=== PATIENT | male | born 1950 | race Caucasian/White ===

== ENCOUNTER → 2018-01-24 | Outpatient (CLI) | payer MEDICARE, OTHER ==
--- NOTE | 2018-01-24 20:54 | ECHOF ---
Referral Reason:R60.0 localized edema MEASUREMENTS -------- HEIGHT: 193.0 cm WEIGHT: 133.4 kg BP: 124/80 IVSd: 1.4 cm (0.6 - 1.1) LVIDd: 4.1 cm (3.9 - 5.3) LVPWd: 1.3 cm (0.6 - 1.1) IVSs: 1.7 cm LVIDs: 2.9 cm LVPWs: 2.2 cm LA Diam: 2.9 cm (2.7 - 3.8) RVIDd: 3.3 cm (< 3.3) LAESV Index (A-L): 13.88 ml/m Ao Diam: 4.1 cm (2.0 - 3.7) AV Cusp: 2.6 cm (1.5 - 2.6) EPSS: 0.2 cm MV E Stan: 0.60 m/s MV DecT: 203 ms MV A Stan: 0.65 m/s MV E/A Ratio: 0.93 AV maxP.65 mmHg AV meanP.73 mmHg RAP: 5.00 mmHg RVSP: 28.48 mmHg MV EF SLOPE: 84.63 mm/s (70 - 150) MV EXCURSION: 19.52 mm (> 18.000) FINDINGS -------- Sinus rhythm. This was a technically adequate study. The left ventricular size is normal. There is moderate concentric left ventricular hypertrophy. O verall left ventricular systolic function is normal with, an EF between 60 - 65 %. The right ventricle is mildly enlarged. Normal LA size by volume 22+/-6 ml/m2. The right atrium is normal in size. There is mild aortic valve sclerosis. Trace to mild aortic regurgitation. Peak/mean gradient acro ss the Aortic Valve is 14.65mmHg / 6.73mmHg. Mild mitral annular calcification present. No regurgitation noted There is no pulmonic regurgitation present. The aortic root is dilated measuring 4.1cm. Normal inferior vena cava with normal inspiratory collapse consistent with estimated right atrial pre ssure of 5 mmHg. There is no pericardial effusion. CONCLUSIONS -------- 1. Sinus rhythm. 2. This was a technically adequate study. 3. The left ventricular size is normal. 4. There is moderate concentric left ventricular hypertrophy. 5. Overall left ventricular systolic function is normal with, an EF between 60 - 65 %. 6. The right ventricle is mildly enlarged. 7. Normal LA size by volume 22+/-6 ml/m2. 8. The right atrium is normal in size. 9. There is mild aortic valve sclerosis. 10. Trace to mild aortic regurgitation. 11. Peak/mean gradient across the Aortic Valve is 14.65mmHg / 6.73mmHg. 12. Mild mitral annular calcification present. 13. No regurgitation noted 14. There is no pulmonic regurgitation present. 15. The aortic root is dilated measuring 4.1cm. 16. Normal inferior vena cava with normal inspiratory collapse consistent with estimated right atrial pressure of 5 mmHg. 17. There is no pericardial effusion. DRY ROASTER: Perry Eli RDCS
== END | disposition home or self-care (01) ==
LOC: RADECHMAIN 15:35
PROVIDERS: ATTEND Family Medicine
DX: I08.0 Rheumatic disorders of both mitral and aortic valves (principal); R60.0 Localized edema
CPT/HCPCS: 93306

== ENCOUNTER 2018-12-15 23:39 | Inpatient (IN) | payer MEDICARE ==
--- NOTE | 2018-12-16 00:09 | ED ---
Chest Pain HPI - General Chief Complaint: Chest Pain Stated Complaint: Chest pain, REZA Time Seen by Provider: 12/15/18 23:53 Source: patient Mode of arrival: EMS Limitations: no limitations - History of Present Illness Initial Comments: This patient is a 68-year-old man who presents to be evaluated for pain to the epigastric area that comes when he takes a deep breath. The patient states that this been going on for 1 week now. He states that when he is not taking of breath there is no pain. He describes it as an aching pain. Patient denies any associated symptoms though he states he has had a cough that is been going on for some time now. No fever or chills. No palpitations, lightheadedness, syncope, nausea or vomiting. MD Complaint: chest pain Onset/Timin -: week(s) Onset: during rest Pain Location: epigastric Pain Radiation: none Severity scale (1-10): 4 Quality: aching Consistency: intermittent Improves With: nothing Worsens With: inspiration Other Symptoms: cough Treatments Prior to Arrival: none - Related Data Home Medications Medication Instructions Recorded Confirmed Aspirin 325 mg PO DAILY 02/26/15 12/15/18 Divalproex [Depakote] 500 mg PO TID 02/26/15 12/15/18 FLUoxetine HCL [Fluoxetine HCl] 20 mg PO QAM 02/26/15 12/15/18 Finasteride 5 mg PO QAM 02/26/15 12/15/18 Tamsulosin HCl 0.4 mg PO QAM 02/26/15 12/15/18 Furosemide [Lasix] 20 mg PO 12/15/18 Allergies Allergy/AdvReac Type Severity Reaction Status Date / Time Penicillins Allergy Rash/Hives Verified 02/26/15 15:50 Review of Systems ROS Statement: Those systems with pertinent positive or pertinent negative responses have been documented in the HPI. ROS Other: All systems not noted in ROS Statement are negative. Constitutional: Denies: fever, chills Respiratory: Reports: cough. Denies: dyspnea, wheezes, hemoptysis Cardiovascular: Reports: as per HPI, chest pain, orthopnea, edema (Patient states that he has had edema for one year greater in the right leg than the left.). Denies: palpitations, dyspnea on exertion, syncope Gastrointestinal: Denies: abdominal pain, nausea, vomiting Genitourinary: Denies: dysuria, hematuria Musculoskeletal: Denies: back pain Skin: Denies: rash Neurological: Denies: headache, weakness, numbness EKG Findings - EKG Results: EKG: interpreted by JOANN PIERCE, sinus rhythm (Rate 81 bpm), normal axis, normal QRS, normal ST/T - IA, Pacemaker, Normal: Normal tracing: normal tracing Past Medical History Past Medical History: No Reported History History of Any Multi-Drug Resistant Organisms: None Reported Past Surgical History: Orthopedic Surgery Past Psychological History: Bipolar Smoking Status: Current every day smoker Past Alcohol Use History: Occasional Past Drug Use History: None Reported General Exam Limitations: no limitations General appearance: alert, in no apparent distress Head exam: Present: atraumatic, normocephalic Eye exam: Present: normal appearance. Absent: scleral icterus, conjunctival injection ENT exam: Present: normal oropharynx Respiratory exam: Present: rales (Bilateral lower lung lerma). Absent: respiratory distress, wheezes, rhonchi, stridor, chest wall tenderness, accessory muscle use, decreased breath sounds, prolonged expiratory Cardiovascular Exam: Present: regular rate, normal rhythm, normal heart sounds. Absent: systolic murmur, diastolic murmur, rubs, gallop GI/Abdominal exam: Present: soft. Absent: distended, tenderness, guarding, rebound, rigid, mass Extremities exam: Present: normal inspection, normal capillary refill, pedal edema (There is edema to the bilateral lower legs right greater than left. There are chronic venous stasis changes.). Absent: tenderness, calf tenderness Back exam: Present: normal inspection. Absent: CVA tenderness (R), CVA tenderness (L) Neurological exam: Present: alert Skin exam: Present: warm, dry, intact, normal color. Absent: rash Course Vital Signs 12/15/18 12/16/18 23:43 00:10 Temperature 98.6 F Pulse Rate 82 Respiratory 24 22 Rate Blood Pressure 123/77 O2 Sat by Pulse 95 Oximetry Disposition Clinical Impression: CHF exacerbation Disposition: ADMITTED IP TO THIS HOSP Condition: Fair Referrals: Russell Brock DO [Primary Care Provider] - 1-2 days
[2018-12-16 00:27] LABS: Anisocytosis Slight; Basophils % (A) 0 %; Eosinophils # (A) 0.4 k/uL (0-0.7); Eosinophils % (A) 4 %; HCT 38.4 % (39.0-53.0); HGB 13.2 gm/dL (13.0-17.5); Lymphocytes # (A) 1.6 k/uL (1.0-4.8); Lymphocytes % (A) 16 %; MCHC 34.3 g/dL (31.0-37.0); MCV 81.5 fL (80.0-100.0); Mean Platelet Volume 9.9; Monocytes # (A) 0.9 k/uL (0-1.0); Monocytes % (A) 9 %; Neutrophils # (A) 7.4 k/uL (1.3-7.7); Neutrophils % (A) 71 %; Platelet Count 233 k/uL (150-450); RBC 4.71 m/uL (4.30-5.90); WBC 10.4 k/uL (3.8-10.6)
[2018-12-16 00:46] LABS: Albumin 3.2 g/dL (3.5-5.0); Calcium 8.3 mg/dL (8.4-10.2); Total Bilirubin 0.3 mg/dL (0.2-1.3); Total Protein 5.6 g/dL (6.3-8.2)
[2018-12-16 01:02] LABS: D-Dimer 0.29 mg/L FEU (<0.60); INR 0.9 (<1.2); Partial Thromboplastin Time 24.6 sec (22.0-30.0); Prothrombin Time 9.5 sec (9.0-12.0)
--- NOTE | 2018-12-16 01:11 | XR ---
EXAM: XR Chest, 2 Views CLINICAL HISTORY: Chest Pain TECHNIQUE: Frontal and lateral views of the chest. COMPARISON: No relevant prior studies available. FINDINGS: Lungs: Bibasilar subsegmental changes. Slightly diminished lung volumes. Pleural space: No large pleural effusion. No pneumothorax. Heart: Unremarkable. No cardiomegaly. Mediastinum: The trachea is midline. The mediastinal contours demonstrate no significant abnormality. Bones/joints: Unremarkable. IMPRESSION: Bibasilar subsegmental changes. Primary consideration is subsegmental atelectasis given slightly diminished lung volumes. Infection at the lung bases is difficult to entirely exclude. Please correlate clinically.
[2018-12-16] MEDS ORDERED: HYDROcodone/APAP 5-325MG 1 EACH TAB PO STA (01:16)
[2018-12-16] MEDS: FUROSEMIDE 10 MG/ML 4 ML VIAL IV SCH ×2 (02:53→14:29)
[2018-12-16 03:51] VITALS: BMI 35.7
[2018-12-16] MEDS: NITROGLYCERIN OINT 1 INCH/GM PACKET TOPICAL SCH ×4 (08:31→20:54)
[2018-12-16] MEDS: HEPARIN SODIUM,PORCINE 5,000 UNIT/ML 1 ML VIAL SQ SCH ×2 (08:31→20:53)
[2018-12-16] MEDS ORDERED: ACETAMINOPHEN TAB 325 MG TAB PO PRN (13:30)
[2018-12-16] MEDS: DIVALPROEX 500 MG TABLET.DR PO SCH ×3 (14:29→20:53)
[2018-12-16] MEDS: buPROPion SR 150 MG TABLET.ER PO SCH ×2 (14:29→21:43)
[2018-12-16] MEDS: TAMSULOSIN 0.4 MG CAP.ER.24H PO SCH (14:34)
[2018-12-16] MEDS: FENOFIBRATE 160 MG TAB PO SCH (14:34)
[2018-12-16] MEDS: traZODone HCL 100 MG TAB PO SCH (20:53)
[2018-12-16] MEDS ORDERED: ALPRAZolam 0.25 MG TAB PO PRN (21:44)
[2018-12-16] MEDS ORDERED: MAGNESIUM HYDROXIDE 2,400 MG/10 ML CUP PO PRN (21:44)
[2018-12-16] MEDS ORDERED: NALOXONE 0.4 MG/ML 1 ML VIAL IV PRN (21:44)
[2018-12-16] MEDS ORDERED: CALCIUM CARBONATE 500 MG CHEWABLE PO PRN (21:44)
[2018-12-16] MEDS ORDERED: MELATONIN 3 MG TABLET PO PRN (21:44)
[2018-12-16] MEDS ORDERED: ONDANSETRON 4 MG/2 ML VIAL IVP PRN (21:44)
[2018-12-16] MEDS ORDERED: LACTULOSE 20 GM/30 ML CUP PO PRN (21:44)
[2018-12-16] MEDS ORDERED: LEVOFLOXACIN 750MG-D5W PMX 750 MG in DEXTROSE/WATER 1 150ML.BAG IVPB SCH (21:45)
[2018-12-16] MEDS: IPRATROPIUM-ALBUTEROL 3 ML NEB INHALATION SCH (21:51)
[2018-12-16] MEDS: BUDESONIDE 1 MG/2 ML NEBU INHALATION SCH (21:51)
[2018-12-16] MEDS: AZITHROMYCIN 500 MG TAB PO SCH (21:52)
[2018-12-16] MEDS: NAPROXEN 250 MG TAB PO SCH (21:52)
[2018-12-16] MEDS: ENOXAPARIN 40 MG/0.4 ML SYRINGE SQ SCH (21:53)
[2018-12-16] MEDS: FAMOTIDINE 20 MG TAB PO SCH (21:54)
[2018-12-16] MEDS: NICOTINE 21MG/24HR PATCH TRANSDERM SCH (21:54)
[2018-12-16] MEDS: methylPREDNISolone SOD SUCCI 40 MG/ML 1 ML VIAL IV SCH (21:55)
--- NOTE | 2018-12-16 23:31 | HP ---
HISTORY AND PHYSICAL DATE OF ADMISSION: December 16, 2018. DATE OF SERVICE: December 16, 2018. PRESENTING COMPLAINT: Short of breath. HISTORY OF PRESENTING COMPLAINT: This 68 -year-old patient of Dr. Brock who presents 1 week of increasing short of breath slight, cough. No sputum production. No obvious fever or chills. Appetite is just okay. Has been more and more short of breath and has shallow breathing, is getting pleuritic chest pain with deep breaths, feeling tired, run down. Patient is a long-standing smoker. The patient in the ER was put on IV Lasix. The patient is long- standing smoker. REVIEW OF SYSTEMS: CONSTITUTIONAL: Tired. HEENT None. RESPIRATORY as above. Wheezing, cough. CARDIOVASCULAR: None. GENITOURINARY: None. MUSCULOSKELETAL none. DERMATOLOGICAL, HEMATOLOGIC, LYMPHATICS: None. PSYCHIATRY: Bipolar disorder, controlled. NEUROLOGICAL: Numbness and tingling in hands and feet. PAST MEDICAL HISTORY: Bipolar disorder. PAST SURGICAL HISTORY: Right femur repair. SOCIAL HISTORY: Smokes about a pack a day for 50 years. Used to drink heavy in the past, now down to about 2 beers a week. Lives with a roommate. FAMILY HISTORY: Reviewed. Noncontributory to presentation. HOME MEDICATIONS: 1. Desyrel 100 mg q.h.s. 2. Wellbutrin XL 150 mg b.i.d. 3. Flomax 0.4 mg p.o. daily. 4. [place]-3 1000 mg p.o. daily. 5. Motrin 800 mg q.6 p.r.n. 6. Fenofibrate 160 mg p.o. daily. 7. Depakote 500 mg p.o. t.i.d. 8. Tylenol 650 mg q.4 p.r.n. ALLERGIES: PENICILLIN. PHYSICAL EXAMINATION: VITAL SIGNS: On exam: Vital signs on presentation: Temperature 98.6, pulse 72, respiration 20, blood pressure 123/77, pulse ox 95% on 2 L. GENERAL APPEARANCE: Well built, BMI 35.8. Lying in bed, tired-appearing, short of breath. EYES: Pupils equal, conjunctivae normal. HEENT: External appearance of nose and ears normal. Oral cavity normal. NECK: JVD not raised. Mass not palpable. RESPIRATORY: Effort increased. LUNGS: Diminished breath sounds, prolonged expiration and wheezing. CARDIOVASCULAR: 1st and 2nd sounds normal. No edema. ABDOMEN: Soft, nontender. Liver and spleen not palpable. LYMPHATICS: No lymph nodes palpable in the neck or axilla. PSYCHIATRY: Alert and oriented x3. Mood and affect normal. NEUROLOGICAL: Pupils equal. Cranial nerves grossly intact. Power and sensation grossly intact. INVESTIGATIONS: White count 10.1, hemoglobin 13.2, potassium 4.0. BUN and creatinine is normal. Troponin x3 negative. Amylase and lipase is normal. EKG tracing personally reviewed by me shows normal sinus rhythm. Chest x-ray film personally reviewed by me shows some infiltrate at the bases. ASSESSMENT: 1. Acute bilateral pneumonia could be bacterial. Gram-negative organism though cannot rule out a viral type of pneumonitis. 2. Acute chronic obstructive pulmonary disease exacerbation in a current smoker. 3. Chronic nicotine dependence patient is a cigarette smoker. PLAN: Patient will be started on IV ceftriaxone, Zithromax. Also put the patient on nebulized bronchodilators, IV steroids and inhaled steroids. Lovenox for DVT prophylaxis and given a nicotine patch. We will stop the patient's IV Lasix as not behaving like CHF. Will send off a proBNP and also send off a procalcitonin level. Care was discussed with the patient. Questions were answered. Depending on the clinical course, will take it further from there. Copy to Dr. Brock. MMODL / IJN: [id number] /
[2018-12-17] MEDS: IPRATROPIUM-ALBUTEROL 3 ML NEB INHALATION SCH ×6 (00:07→20:16)
[2018-12-17] MEDS: methylPREDNISolone SOD SUCCI 40 MG/ML 1 ML VIAL IV SCH ×3 (01:48→17:29)
[2018-12-17 07:32] LABS: Basophils % (A) 0 %; Eosinophils # (A) 0.1 k/uL (0-0.7); Eosinophils % (A) 1 %; HCT 44.7 % (39.0-53.0); HGB 14.8 gm/dL (13.0-17.5); Lymphocytes # (A) 0.8 k/uL (1.0-4.8); Lymphocytes % (A) 9 %; MCH 27.9 pg (25.0-35.0); MCV 84.4 fL (80.0-100.0); Monocytes # (A) 0.2 k/uL (0-1.0); Monocytes % (A) 2 %; Neutrophils % (A) 88 %; Platelet Count 222 k/uL (150-450); RDW 13.5 % (11.5-15.5); WBC 9.2 k/uL (3.8-10.6)
[2018-12-17 07:42] LABS: Calcium 9.1 mg/dL (8.4-10.2); Potassium 4.6 mmol/L (3.5-5.1)
[2018-12-17] MEDS: BUDESONIDE 1 MG/2 ML NEBU INHALATION SCH ×2 (09:05→20:16)
[2018-12-17] MEDS: FAMOTIDINE 20 MG TAB PO SCH ×2 (09:08→20:53)
[2018-12-17] MEDS: NAPROXEN 250 MG TAB PO SCH ×3 (09:08→20:53)
[2018-12-17] MEDS: DIVALPROEX 500 MG TABLET.DR PO SCH ×3 (09:08→20:54)
[2018-12-17] MEDS: buPROPion SR 150 MG TABLET.ER PO SCH ×2 (09:08→20:54)
[2018-12-17] MEDS: TAMSULOSIN 0.4 MG CAP.ER.24H PO SCH (09:09)
[2018-12-17] MEDS: NICOTINE 21MG/24HR PATCH TRANSDERM SCH (09:09)
[2018-12-17] MEDS: FENOFIBRATE 160 MG TAB PO SCH (09:09)
[2018-12-17] MEDS: NITROGLYCERIN OINT 1 INCH/GM PACKET TOPICAL SCH ×4 (09:10→20:53)
[2018-12-17] MEDS: ENOXAPARIN 40 MG/0.4 ML SYRINGE SQ SCH (20:53)
[2018-12-17] MEDS: traZODone HCL 100 MG TAB PO SCH (20:54)
[2018-12-17] MEDS: AZITHROMYCIN 500 MG TAB PO SCH (20:54)
[2018-12-17] MEDS ORDERED: LEVOFLOXACIN 750 MG TAB PO SCH (21:00)
[2018-12-17] MEDS ORDERED: RX INFO: IV CONTRAST WAS GIVEN 1 EACH MISC MISCELLANE PRN (23:14)
[2018-12-18] MEDS: IPRATROPIUM-ALBUTEROL 3 ML NEB INHALATION SCH ×4 (00:02→12:12)
[2018-12-18] MEDS: methylPREDNISolone SOD SUCCI 40 MG/ML 1 ML VIAL IV SCH ×2 (00:21→09:06)
--- NOTE | 2018-12-18 05:05 | PN ---
PROGRESS NOTE DATE OF SERVICE: 12/17/2018 PRESENTING COMPLAINT: Short of breath. INTERVAL HISTORY: This patient admitted with COPD exacerbation, pneumonia. Feels better today. Less cough, less short of breath. Did walk to the bathroom. Oral intake is a bit better. Breathing is a bit better. REVIEW OF SYSTEMS: Done for constitutional, cardiovascular, GI, pulmonary; relevants findings as above. CURRENT MEDICATIONS: Current medications are reviewed that include bronchodilators, IV Solu-Medrol, Zithromax, Levaquin. PHYSICAL EXAMINATION: On examination, temperature 97.7, pulse 93, respirations 20 blood pressure 135/69, pulse ox 93% on room air. GENERAL APPEARANCE: Sitting up, awake. EYES: Pupils equal. Conjunctivae normal. NECK: JVD not raised. Mass not palpable. RESPIRATORY: Effort increased. LUNGS: Decreased breath sounds, decreased wheezing. CARDIOVASCULAR: First and second sounds normal. Minimal edema. ABDOMEN: Soft, nontender. Liver and spleen not palpable. PSYCHIATRY: Alert and oriented x3. Mood and affect normal. INVESTIGATIONS: White count 9.2. Potassium 4.6. Procalcitonin 0.09. ProBNP 135. ASSESSMENT: 1. Acute bilateral pneumonia, could be viral or bacterial with clinical improvement. 2. Acute chronic obstructive pulmonary disease exacerbation in a current smoker. 3. Chronic nicotine dependence. Patient is a cigarette smoker. PLAN: The patient is overall doing better. Given some nonspecific findings on this chest x- ray, we will do a CT scan in the morning of the chest. Otherwise, I am hoping patient can be discharged tomorrow. MMODL / IJN: [id number] /
[2018-12-18 07:19] LABS: Calcium 9.3 mg/dL (8.4-10.2); Potassium 4.6 mmol/L (3.5-5.1)
--- NOTE | 2018-12-18 08:30 | CT ---
EXAMINATION TYPE: CT chest w con DATE OF EXAM: 12/18/2018 COMPARISON: Chest x-ray from 2 days ago. HISTORY: Abn CXR CT DLP: 696.9 mGycm. Automated Exposure Control for Dose Reduction was Utilized. TECHNIQUE: CT scan of the thorax is performed following with IV Contrast, patient injected with 100 mL of Isovue 300. FINDINGS: LUNGS: There is elevated left hemidiaphragm with lateral left basilar linear scarring and/or atelecta sis. No suspicious focal consolidation or groundglass opacity. No concerning parenchymal nodule or ma ss. No pleural effusion or pneumothorax is noted. Tracheobronchial tree is patent MEDIASTINUM: There are no greater than 1 cm hilar or mediastinal lymph nodes. No cardiomegaly or pe ricardial effusion is seen. Enlarged main pulmonary artery measures 3.2 cm diameter on axial image 27 . OTHER: Small degree of bilateral subareolar flame-shaped gynecomastia noted. IMPRESSION: Interval improvement in bibasilar atelectasis and/or infiltrate, minimal residual left ba silar linear scarring and/or atelectasis. No suspicious focal infiltrate remains present.
[2018-12-18] MEDS: FENOFIBRATE 160 MG TAB PO SCH (09:06)
[2018-12-18] MEDS: TAMSULOSIN 0.4 MG CAP.ER.24H PO SCH (09:06)
[2018-12-18] MEDS: FAMOTIDINE 20 MG TAB PO SCH (09:06)
[2018-12-18] MEDS: buPROPion SR 150 MG TABLET.ER PO SCH (09:06)
[2018-12-18] MEDS: DIVALPROEX 500 MG TABLET.DR PO SCH ×2 (09:06→15:29)
[2018-12-18] MEDS: NAPROXEN 250 MG TAB PO SCH (09:06)
[2018-12-18] MEDS: NICOTINE 21MG/24HR PATCH TRANSDERM SCH (09:06)
[2018-12-18] MEDS: NITROGLYCERIN OINT 1 INCH/GM PACKET TOPICAL SCH ×2 (09:07→11:53)
[2018-12-18] MEDS: BUDESONIDE 1 MG/2 ML NEBU INHALATION SCH (09:16)
[2018-12-18 10:17] VITALS: RESP 20
[2018-12-18 11:58] VITALS: BP 132/61; TEMP 97.6
[2018-12-18 12:24] VITALS: PULSE 80
[2018-12-18] MEDS: AZITHROMYCIN 500 MG TAB PO SCH (15:32)
--- NOTE | 2018-12-19 08:28 | DS ---
DISCHARGE SUMMARY DATE OF ADMISSION: 12/16/2018 DATE OF DISCHARGE: 12/18/2018 FINAL DIAGNOSES: 1. Acute bilateral pneumonia, could be viral, bacterial, less likely. 2. Acute chronic obstructive pulmonary disease exacerbation in a current smoker. 3. Chronic nicotine dependence, patient is a cigarette smoker. HOSPITAL COURSE: This patient presented with pneumonia and COPD exacerbation, is smoker. Responded well to antibiotic, steroids, inhaled bronchodilators. Doing much better at the time of discharge. CT scan of the chest was unremarkable. ON EXAMINATION: LUNGS: Improved air entry. CARDIOVASCULAR: First and second sounds normal. Pulse ox 93% on room air. INVESTIGATIONS: Potassium 4.6. The patient is advised against smoking. DISCHARGE MEDICATIONS: 1. Depakote 500 mg p.o. t.i.d. 2. Flomax 0.4 mg p.o. daily. 3. Tricor 160 mg p.o. daily. 4. Motrin 200 to 800 mg q.6 p.r.n. 5. [place]-3, 1000 mg p.o. daily. 6. Wellbutrin SR 150 mg b.i.d. 7. Desyrel 100 mg p.o. q.h.s. 8. Ventolin HFA 1 to 2 puffs q.6 p.r.n. 9. Zithromax 500 mg q.24 for 3 tablets. 10.Atrovent HFA 2 puffs q.i.d. 11.Nicotine patch 21. 12.Prednisone taper. Follow up with Dr. Brock on 12/27/2018. MMODL / IJN: [id number] /
== END 2018-12-18 15:50 | disposition home health service (06) | DRG 194 ==
LOC: EC 23:39 → 3SCARD 12-16 02:12 → OBSVTOIN 12-17 10:45
PROVIDERS: ADMIT Hospitalist; ATTEND Hospitalist
DX: J12.9 Viral pneumonia, unspecified (principal); J44.0 Chronic obstructive pulmonary disease with (acute) lower respiratory infection; J44.1 Chronic obstructive pulmonary disease with (acute) exacerbation; J15.9 Unspecified bacterial pneumonia; F31.9 Bipolar disorder, unspecified; F17.210 Nicotine dependence, cigarettes, uncomplicated; Z71.6 Tobacco abuse counseling; Z79.82 Long term (current) use of aspirin; Z79.899 Other long term (current) drug therapy; Z88.0 Allergy status to penicillin
CPT/HCPCS: 36415; 71046; 71260; 80048; 80053; 82150; 83690; 83735; 83880; 84145; 84484; 85025; 85379; 85610; 85730; 93005; 94640; 96374; 99285

== ENCOUNTER 2019-02-22 09:27 | Emergency (ER) | payer MEDICARE ==
[2019-02-22 09:35] VITALS: BP 154/89; PULSE 87; RESP 18; TEMP 99
--- NOTE | 2019-02-22 09:49 | ED ---
General Adult HPI - General Source: patient, RN notes reviewed Mode of arrival: ambulatory Limitations: no limitations <Kalia Phelan - Last Filed: 02/22/19 10:26> <Daniel Torrez - Last Filed: 02/22/19 10:39> - General Chief complaint: Recheck/Abnormal Lab/Rx Stated complaint: Not able to sleep/legs swelling Time Seen by Provider: 02/22/19 09:36 - History of Present Illness Initial comments: This is a 68-year-old male presents emergency Department with complaints of right leg swelling, not able to sleep. Patient states she's had sleeping issues for years. Patient states he only slept a few hours on-and-off last night. He is on trazodone 150 mg currently states that he finally fell asleep after an hour states that he has to get up shortly after because he has BPH. Patient states that he cannot tolerate not sleeping. He has an appointment on Sunday with his PCP. Patient has not tried taking any other medications including Benadryl or melatonin. Patient states in the past he was on Seroquel. Patient denies chest pain, shortness breath, headache, dizziness, fever, chills, nausea vomiting diarrhea constipation. Patient complains of right leg swelling which has been ongoing for months he does admit that he had a prior injury to his right leg years ago when she had a fracture of his femur. Patient denies any numbness or paresthesias at this time. Patient states his leg just feels tight denies any difficulty ambulating (Kalia Phelan) - Related Data Home Medications Medication Instructions Recorded Confirmed Divalproex [Depakote] 500 mg PO TID 02/26/15 02/22/19 Tamsulosin HCl 0.4 mg PO QAM 02/26/15 02/22/19 Acetaminophen Tab [Tylenol] 650 mg PO Q4H PRN 12/16/18 02/22/19 Fenofibrate 160 mg PO DAILY 12/16/18 02/22/19 buPROPion HCL [Wellbutrin SR] 150 mg PO BID 12/16/18 02/22/19 traZODone HCL [Desyrel] 100 mg PO HS 12/16/18 02/22/19 Furosemide [Lasix] 20 mg PO BID 02/22/19 02/22/19 Ipratropium [place] [Atrovent Hfa] 2 puff INHALATION RT-QID 02/22/19 02/22/19 Pioglitazone [Actos] 30 mg PO DAILY 02/22/19 02/22/19 Previous Rx's Medication Instructions Recorded Albuterol Inhaler [Ventolin Hfa 1 - 2 puff INHALATION RT-Q6H PRN 12/18/18 Inhaler] #1 inhaler diphenhydrAMINE [Benadryl] 50 mg PO HS PRN #10 capsule 02/22/19 Allergies Allergy/AdvReac Type Severity Reaction Status Date / Time Penicillins Allergy Rash/Hives Verified 02/22/19 10:33 Review of Systems ROS Other: All systems not noted in ROS Statement are negative. <Kalia Phelan - Last Filed: 02/22/19 10:26> ROS Other: All systems not noted in ROS Statement are negative. <Daniel Torrez - Last Filed: 02/22/19 10:39> ROS Statement: Those systems with pertinent positive or pertinent negative responses have been documented in the HPI. Past Medical History Past Medical History: COPD History of Any Multi-Drug Resistant Organisms: None Reported Past Surgical History: Orthopedic Surgery Additional Past Surgical History / Comment(s): R femor repair Past Anesthesia/Blood Transfusion Reactions: No Reported Reaction Past Psychological History: Bipolar Smoking Status: Current every day smoker Past Alcohol Use History: Occasional Past Drug Use History: None Reported <Kalia Phelan - Last Filed: 02/22/19 10:26> General Exam Limitations: no limitations General appearance: alert, in no apparent distress Head exam: Present: atraumatic, normocephalic, normal inspection Eye exam: Present: normal appearance, PERRL, EOMI. Absent: scleral icterus, conjunctival injection, periorbital swelling ENT exam: Present: normal exam, mucous membranes moist Neck exam: Present: normal inspection, full ROM. Absent: tenderness, men ingismus, lymphadenopathy Respiratory exam: Present: normal lung sounds bilaterally. Absent: respiratory distress, wheezes, rales, rhonchi, stridor Cardiovascular Exam: Present: regular rate, normal rhythm, normal heart sounds. Absent: systolic murmur, diastolic murmur, rubs, gallop, clicks Extremities exam: Present: other (Right leg swelling noted, pedal pulses equal bilaterally, no signs of infection no increased warmth normal sensation) Neurological exam: Present: alert, oriented X3, CN II-XII intact, reflexes normal. Absent: motor sensory deficit Psychiatric exam: Present: normal affect, normal mood Skin exam: Present: warm, dry, intact, normal color. Absent: rash <Kalia Phelan - Last Filed: 02/22/19 10:26> Course <Daniel Torrez - Last Filed: 02/22/19 10:39> Vital Signs 02/22/19 09:31 Temperature 99.0 F Pulse Rate 87 Respiratory 18 Rate Blood Pressure 154/89 O2 Sat by Pulse 97 Oximetry - Reevaluation(s) Reevaluation #1: 02/22/19 10:39 [place] supervision: I proceeded [id number] evaluation the patient patient presents with complaints of leg swelling as well as some insomnia. The workup was negative at this point and do agree with the assessment and plan patient be discharged with follow-up with his doctor. (Daniel Torrez) Medical Decision Making <Kalia Phelan - Last Filed: 02/22/19 10:26> - Medical Decision Making 68-year-old male presented for difficulty sleeping, right leg swelling. Avulsion and right leg was reviewed no acute DVT. Patient has swelling Most likely due to old injury. There is no signs of infection. Patient will be given Benadryl to take with his trazodone at nighttime for sleeping and will follow-up with his PCP and Sunday to discuss other options. (Kalia Phelan) Disposition Is patient prescribed a controlled substance at d/c from ED?: No Time of Disposition: 10:28 <Kalia Phelan - Last Filed: 02/22/19 10:26> <Daniel Torrez - Last Filed: 02/22/19 10:39> Clinical Impression: Right leg swelling, Insomnia Disposition: HOME SELF-CARE Condition: Stable Instructions (If sedation given, give patient instructions): Insomnia (ED) Additional Instructions: Please return to the Emergency Department if symptoms worsen or any other concerns. Prescriptions: diphenhydrAMINE [Benadryl] 50 mg PO HS PRN #10 capsule PRN Reason: Insomnia Referrals: Russell Brock DO [Primary Care Provider] - 1-2 days
--- NOTE | 2019-02-22 10:21 | US ---
EXAMINATION TYPE: US venous doppler duplex LE RT DATE OF EXAM: 02/22/2019 9:44 AM COMPARISON: NONE CLINICAL HISTORY: Pain. Right foot pain x couple days SIDE PERFORMED: Right TECHNIQUE: The lower extremity deep venous system is examined utilizing real time linear array sonog ajay with graded compression, doppler sonography and color-flow sonography. VESSELS IMAGED: External Iliac Vein (EIV) Common Femoral Vein Deep Femoral Vein Greater Saphenous Vein * Femoral Vein Popliteal Vein Small Saphenous Vein * Proximal Calf Veins (* superficial vessels) Right Leg: Appears negative for DVT No popliteal fossa lesion is seen. IMPRESSION: THIS EXAMINATION IS NEGATIVE FOR DVT WITHIN THE RIGHT LEG.
== END 2019-02-22 10:55 | disposition home or self-care (01) ==
LOC: EC 09:27
DX: G47.00 Insomnia, unspecified (principal); M79.89 Other specified soft tissue disorders; J44.9 Chronic obstructive pulmonary disease, unspecified; N40.0 Benign prostatic hyperplasia without lower urinary tract symptoms; F31.9 Bipolar disorder, unspecified; F17.200 Nicotine dependence, unspecified, uncomplicated; Z87.81 Personal history of (healed) traumatic fracture; Z98.890 Other specified postprocedural states; Z79.84 Long term (current) use of oral hypoglycemic drugs; Z79.899 Other long term (current) drug therapy; Z88.0 Allergy status to penicillin
CPT/HCPCS: 99283

== ENCOUNTER 2019-03-18 16:57 | Emergency (ER) | payer MEDICARE ==
--- NOTE | 2019-03-18 17:56 | ED ---
General Adult HPI - General Chief complaint: Syncope Stated complaint: SYNCOPE Time Seen by Provider: 03/18/19 17:10 Source: patient, EMS Mode of arrival: EMS Limitations: no limitations - History of Present Illness Initial comments: Dictation was produced using [employer] dictation software. please excuse any grammatical, word or spelling errors. Chief Complaint: 60-year-old male past medical history of COPD presents with ep isode of syncope. History of Present Illness: It is a 68-year-old male. He states he left his house. He walked across the street instead of bus stop for approximately 2-3 minutes. Says it was rather hot today. Patient states that he began feeling faint. He slowly went to sit down to the ground. States that he felt very faint for several seconds. He was noted to be on the ground by a neighbor. EMS was called and patient was brought to the emergency department. Patient states that while en route to the emergency department his feelings of faintness have resolved. Patient has no history of syncope. Patient is on multiple medications including antihypertensives, psychiatric and diuretics. The ROS documented in this emergency department record has been reviewed and confirmed by me. Those systems with pertinent positive or negative responses have been documented in the HPI. All other systems are other negative and/or noncontributory. PHYSICAL EXAM: General Impression: Alert and oriented x3, not in acute distress HEENT: Normocephalic atraumatic, extra-ocular movements intact, pupils equal and reactive to light bilaterally, mucous membranes moist. Cardiovascular: Heart regular rate and rhythm, S1&S2 audible, no murmurs, rubs or gallops Chest: Lungs clear to auscultation bilaterally, no rhonchi, no wheeze, no rales Abdomen: Bowel sounds present, abdomen soft, non-tender, non-distended, no organomegaly Musculoskeletal: Pulses present and equal in all extremities, no peripheral edema Motor: no focal deficits noted Neurological: CN II-XII grossly intact, no focal motor or sensory deficits noted Skin: Intact with no visualized rashes Psych: Normal affect and mood ED course: 68-year-old male presents with episode of syncope. Upon arrival are within acceptable limits. EKG is benign. Laboratory evaluation obtained. CBC comes metabolic panel grossly unremarkable. Patient's vital markers about baseline. Patient has a leukocytosis of 14.4. Chest x-ray is nonacute. She has no localizing symptoms of infection. He is observed in emergency department for several hours in stable medical condition. Time. I bedside. Patient and motor without complications. Medications were reviewed. Patient told to discontinue taking tamsulosin for the time being given that this may be a reason why he is experiencing syncope. Maintain good hydration and well-balanced diet. He is otherwise notable to discharge for follow-up this week with his primary care physician. Patient clear for discharge. Return parameters discussed. Patient states that he will return to emergency department if he starts feeling faint or feel palpitations. EKG interpretation: Ventricular rate 84, normal sinus rhythm, SD interval 186, QS 100, QTC 434. No SD prolongation, no QTC prolongation, no ST or T-wave changes noted. Overall, this EKG is unremarkable - Related Data Home Medications Medication Instructions Recorded Confirmed Divalproex [Depakote] 500 mg PO TID 02/26/15 03/18/19 Tamsulosin HCl 0.4 mg PO QAM 02/26/15 03/18/19 Fenofibrate 160 mg PO DAILY 12/16/18 03/18/19 buPROPion HCL [Wellbutrin SR] 150 mg PO BID 12/16/18 03/18/19 Furosemide [Lasix] 20 mg PO BID 02/22/19 03/18/19 Ipratropium [place] [Atrovent Hfa] 2 puff INHALATION RT-QID 02/22/19 03/18/19 Ibuprofen [Motrin Ib] 200 mg PO Q4H PRN 03/18/19 03/18/19 QUEtiapine [SEROquel] 100 mg PO HS 03/18/19 03/18/19 Spironolactone 50 mg PO HS 03/18/19 03/18/19 Super Beta Virility Boost 1 tab PO DAILY 03/18/19 03/18/19 Previous Rx's Medication Instructions Recorded Albuterol Inhaler [Ventolin Hfa 1 - 2 puff INHALATION RT-Q6H PRN 12/18/18 Inhaler] #1 inhaler Allergies Allergy/AdvReac Type Severity Reaction Status Date / Time Penicillins Allergy Rash/Hives Verified 03/18/19 17:51 Review of Systems ROS Statement: Those systems with pertinent positive or pertinent negative responses have been documented in the HPI. ROS Other: All systems not noted in ROS Statement are negative. Past Medical History Past Medical History: COPD History of Any Multi-Drug Resistant Organisms: None Reported Past Surgical History: Orthopedic Surgery Additional Past Surgical History / Comment(s): R femor repair Past Anesthesia/Blood Transfusion Reactions: No Reported Reaction Past Psychological History: Bipolar Smoking Status: Current every day smoker Past Alcohol Use History: Occasional Past Drug Use History: None Reported General Exam Limitations: no limitations Course Vital Signs 03/18/19 03/18/19 17:08 19:12 Temperature 99.3 F 98.3 F Pulse Rate 89 83 Respiratory 19 18 Rate Blood Pressure 101/70 103/71 O2 Sat by Pulse 94 L 93 L Oximetry Medical Decision Making - Lab Data Result diagrams: 03/18/19 17:39 03/18/19 17:39 Lab Results 03/18/19 03/18/19 Range/Units 17:39 17:39 WBC 14.4 H (3.8-10.6) k/uL RBC 5.25 (4.30-5.90) m/uL Hgb 14.7 (13.0-17.5) gm/dL Hct 43.6 (39.0-53.0) % MCV 83.1 (80.0-100.0) fL MCH 27.9 (25.0-35.0) pg MCHC 33.6 (31.0-37.0) g/dL RDW 14.7 (11.5-15.5) % Plt Count 242 (150-450) k/uL Neutrophils % 81 % Lymphocytes % 10 % Monocytes % 6 % Eosinophils % 2 % Basophils % 1 % Neutrophils # 11.7 H (1.3-7.7) k/uL Lymphocytes # 1.4 (1.0-4.8) k/uL Monocytes # 0.8 (0-1.0) k/uL Eosinophils # 0.3 (0-0.7) k/uL Basophils # 0.1 (0-0.2) k/uL Sodium 140 (137-145) mmol/L Potassium 4.0 (3.5-5.1) mmol/L Chloride 105 (98-107) mmol/L Carbon Dioxide 23 (22-30) mmol/L Anion Gap 12 mmol/L BUN 21 H (9-20) mg/dL Creatinine 1.60 H (0.66-1.25) mg/dL Est GFR (CKD-EPI)AfAm 51 (>60 ml/min/1.73 sqM) Est GFR (CKD-EPI)NonAf 44 (>60 ml/min/1.73 sqM) Glucose 115 H (74-99) mg/dL Calcium 8.8 (8.4-10.2) mg/dL Magnesium 2.2 (1.6-2.3) mg/dL Total Bilirubin 0.7 (0.2-1.3) mg/dL AST 15 L (17-59) U/L ALT 14 L (21-72) U/L Alkaline Phosphatase 87 (38-126) U/L Total Protein 6.7 (6.3-8.2) g/dL Albumin 3.9 (3.5-5.0) g/dL Disposition Clinical Impression: Pre-syncope Disposition: HOME SELF-CARE Condition: Good Additional Instructions: discontinue tamsulosin Is patient prescribed a controlled substance at d/c from ED?: No Referrals: Russell Brock DO [Primary Care Provider] - 1-2 days Time of Disposition: 19:29
[2019-03-18 18:02] LABS: Basophils # (A) 0.1 k/uL (0-0.2); Basophils % (A) 1 %; Eosinophils # (A) 0.3 k/uL (0-0.7); Eosinophils % (A) 2 %; HCT 43.6 % (39.0-53.0); HGB 14.7 gm/dL (13.0-17.5); Lymphocytes # (A) 1.4 k/uL (1.0-4.8); Lymphocytes % (A) 10 %; MCH 27.9 pg (25.0-35.0); MCHC 33.6 g/dL (31.0-37.0); MCV 83.1 fL (80.0-100.0); Mean Platelet Volume 8.7; Monocytes # (A) 0.8 k/uL (0-1.0); Monocytes % (A) 6 %; Neutrophils # (A) 11.7 k/uL (1.3-7.7); Neutrophils % (A) 81 %; Platelet Count 242 k/uL (150-450); RBC 5.25 m/uL (4.30-5.90); RDW 14.7 % (11.5-15.5); WBC 14.4 k/uL (3.8-10.6)
[2019-03-18 18:11] LABS: Albumin 3.9 g/dL (3.5-5.0); Calcium 8.8 mg/dL (8.4-10.2); Magnesium 2.2 mg/dL (1.6-2.3); Total Bilirubin 0.7 mg/dL (0.2-1.3); Total Protein 6.7 g/dL (6.3-8.2)
--- NOTE | 2019-03-18 18:49 | XR ---
EXAMINATION: XR chest 1V portable DATE AND TIME: 03/18/2019 6:02 PM CLINICAL INDICATION: PHH; xray TECHNIQUE: AP upright portable COMPARISON: 12/16/2018 FINDINGS: The lungs are clear. The pleural spaces are negative. The cardiac silhouette is borderline enlarged. Aortic tortuosity redemonstrated. The skeletal structures and soft tissues are negative for acute findings. IMPRESSION: NO ACUTE PROCESS.
[2019-03-18 19:13] VITALS: BP 103/71; PULSE 83; RESP 18; TEMP 98.3
== END 2019-03-18 19:57 | disposition home or self-care (01) ==
LOC: EC 16:57
DX: R55 Syncope and collapse (principal); D72.829 Elevated white blood cell count, unspecified; J44.9 Chronic obstructive pulmonary disease, unspecified; F31.9 Bipolar disorder, unspecified; F17.200 Nicotine dependence, unspecified, uncomplicated; Z98.890 Other specified postprocedural states; Z79.899 Other long term (current) drug therapy; Z88.0 Allergy status to penicillin
CPT/HCPCS: 36415; 71045; 80053; 83735; 85025; 93005; 99285

== ENCOUNTER → 2019-05-16 | Outpatient (CLI) | payer MEDICARE ==
--- NOTE | 2019-05-16 12:33 | XR ---
EXAMINATION TYPE: XR knee complete LT DATE OF EXAM: 05/16/2019 CLINICAL HISTORY: Left knee pain with no known injury TECHNIQUE: Three views of the left knee are obtained. COMPARISON: None. FINDINGS: There is no acute fracture/dislocation evident in left knee. The tri-compartment joint sp aces appear aligned however there are tricompartmental moderate osteophytes. Very small suprapatellar joint effusion is suspected. Incidentally noted fabella. The overlying soft tissue appears unremarka ble. IMPRESSION: 1. No acute fracture or dislocation in the left knee. 2. Moderate tricompartmental arthropathy.
== END | disposition home or self-care (01) ==
LOC: RADXRMAIN 09:26
PROVIDERS: ATTEND Physician Assistant
DX: M17.12 Unilateral primary osteoarthritis, left knee (principal)

== ENCOUNTER 2020-01-18 20:47 | Emergency (ER) | payer MEDICARE, OTHER ==
[2020-01-18] MEDS ORDERED: SODIUM CHLORIDE 0.9% 500 ML 500 ML IV STA (20:50)
[2020-01-18 20:52] VITALS: RESP 18; TEMP 98.4
--- NOTE | 2020-01-18 20:58 | ED ---
General Adult HPI - General Chief complaint: Dizziness Stated complaint: syncope Time Seen by Provider: 01/18/20 20:50 Source: patient, EMS, RN notes reviewed, old records reviewed Mode of arrival: EMS Limitations: no limitations - History of Present Illness Initial comments: 69-year-old male presents for evaluation of lightheadedness, near-syncope. 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 He states he did not eat or drink well today. He denies central chest pain. Denies preceding nausea vomiting or diarrhea. No fever. No cough or dyspnea. No headache. No focal numbness or weakness. According to EMS patient was awake but minimally responsive and had a staring spell. - Related Data Home Medications Medication Instructions Recorded Confirmed Divalproex [Depakote] 500 mg PO TID 02/26/15 01/18/20 Tamsulosin HCl 0.4 mg PO DAILY 02/26/15 01/18/20 buPROPion HCL [Wellbutrin SR] 150 mg PO BID 12/16/18 01/18/20 Spironolactone 50 mg PO AC-SUPPER 03/18/19 01/18/20 Atorvastatin [Lipitor] 20 mg PO HS 01/18/20 01/18/20 Mirtazapine 15 mg PO HS 01/18/20 01/18/20 Multivit-Min/Folic/Vit K/Lycop 1 tab PO DAILY 01/18/20 01/18/20 [Men's Multivitamin Tablet] QUEtiapine [SEROquel] 100 mg PO HS 01/18/20 01/18/20 Vitamin B-12(Unknown Dose) 1 tab PO DAILY 01/18/20 01/18/20 Vitamin D3(Unknown Dose) 1 tab PO DAILY 01/18/20 01/18/20 Vitamin E(Unknown Dose) 1 cap PO DAILY 01/18/20 01/18/20 Previous Rx's Medication Instructions Recorded Cephalexin [Keflex] 500 mg PO Q12HR #20 cap 01/18/20 Allergies Allergy/AdvReac Type Severity Reaction Status Date / Time Penicillins Allergy Itching Verified 01/18/20 21:41 Review of Systems ROS Statement: Those systems with pertinent positive or pertinent negative responses have been documented in the HPI. ROS Other: All systems not noted in ROS Statement are negative. Past Medical History Past Medical History: COPD History of Any Multi-Drug Resistant Organisms: None Reported Past Surgical History: Orthopedic Surgery Additional Past Surgical History / Comment(s): R femor repair Past Anesthesia/Blood Transfusion Reactions: No Reported Reaction Past Psychological History: Bipolar Smoking Status: Current every day smoker Past Alcohol Use History: Occasional Past Drug Use History: None Reported General Exam Limitations: no limitations General appearance: alert, in no apparent distress Head exam: Present: atraumatic, normocephalic Eye exam: Present: normal appearance, PERRL ENT exam: Present: mucous membranes dry Neck exam: Present: normal inspection. Absent: tenderness, meningismus Respiratory exam: Present: normal lung sounds bilaterally. Absent: respiratory distress, wheezes, rales Cardiovascular Exam: Present: regular rate, normal rhythm GI/Abdominal exam: Present: soft. Absent: distended, tenderness, guarding, rebound Extremities exam: Present: normal inspection, normal capillary refill. Absent: pedal edema Neurological exam: Present: alert, oriented X3, CN II-XII intact, other (No ataxia). Absent: motor sensory deficit Psychiatric exam: Present: normal affect, normal mood Skin exam: Present: warm, dry, intact. Absent: cyanosis, diaphoretic Course Vital Signs 01/18/20 20:48 Temperature 98.4 F Pulse Rate 57 L Respiratory 18 Rate Blood Pressure 106/71 O2 Sat by Pulse 96 Oximetry - Reevaluation(s) Reevaluation #1: 01/18/20 22:04 Patient reevaluated, resting comfortably with stable vitals, he is eating and drinking normally in the emergency department, is very eager for discharge. EKG Findings - EKG Comments: EKG Findings:: EKG: Normal sinus rhythm, rate of 72, NC interval 170, QRS duration 88, QTC 407, no ST segment elevation Medical Decision Making - Medical Decision Making 69-year-old male with near syncope, lightheadedness. Patient admits that he did not eat or drink well at all today and he had been standing at spiritism. Workup reveals EKG which is sinus rhythm no ischemic changes. Chest x-ray negative for acute cardiopulmonary disease. CT head is negative for intracranial hemorrhage or mass effect. Patient has a CBC showing a white blood cell count of 11.5, creatinine of 1.47 which is baseline for this patient. Urinalysis showing greater than 182 white blood cells and trace ketones. Urine culture has been obtained. Likely symptoms are secondary to dehydration, poor by mouth intake, as well as UTI. He is given a dose of Rocephin in the emergency department as well as IV fluids. He is very eager for discharge he will maintain oral hydration at home and will return with worsening or changing symptoms. - Lab Data Result diagrams: 01/18/20 20:57 01/18/20 20:57 Lab Results 01/18/20 01/18/20 01/18/20 Range/Units 20:57 20:57 20:57 WBC 11.5 H (3.8-10.6) k/uL RBC 5.95 H (4.30-5.90) m/uL Hgb 17.5 (13.0-17.5) gm/dL Hct 51.9 (39.0-53.0) % MCV 87.2 (80.0-100.0) fL MCH 29.4 (25.0-35.0) pg MCHC 33.8 (31.0-37.0) g/dL RDW 13.1 (11.5-15.5) % Plt Count 265 (150-450) k/uL Neutrophils % 76 % Lymphocytes % 16 % Monocytes % 5 % Eosinophils % 2 % Basophils % 1 % Neutrophils # 8.7 H (1.3-7.7) k/uL Lymphocytes # 1.9 (1.0-4.8) k/uL Monocytes # 0.5 (0-1.0) k/uL Eosinophils # 0.2 (0-0.7) k/uL Basophils # 0.1 (0-0.2) k/uL PT 9.8 (9.0-12.0) sec INR 0.9 (<1.2) APTT 21.7 L (22.0-30.0) sec Sodium 138 (137-145) mmol/L Potassium 4.8 (3.5-5.1) mmol/L Chloride 104 (98-107) mmol/L Carbon Dioxide 25 (22-30) mmol/L Anion Gap 9 mmol/L BUN 23 H (9-20) mg/dL Creatinine 1.47 H (0.66-1.25) mg/dL Est GFR (CKD-EPI)AfAm 56 (>60 ml/min/1.73 sqM) Est GFR (CKD-EPI)NonAf 48 (>60 ml/min/1.73 sqM) Glucose 119 H (74-99) mg/dL Calcium 9.9 (8.4-10.2) mg/dL Magnesium 2.1 (1.6-2.3) mg/dL Total Bilirubin 0.6 (0.2-1.3) mg/dL AST 17 (17-59) U/L ALT 15 (4-49) U/L Alkaline Phosphatase 100 (38-126) U/L Troponin I (0.000-0.034) ng/mL Total Protein 7.1 (6.3-8.2) g/dL Albumin 4.2 (3.5-5.0) g/dL Urine Color Urine Appearance (Clear) Urine pH (5.0-8.0) Ur Specific [place] (1.001-1.035) Urine Protein (Negative) Urine Glucose (UA) (Negative) Urine Ketones (Negative) Urine Blood (Negative) Urine Nitrite (Negative) Urine Bilirubin (Negative) Urine Urobilinogen (<2.0) mg/dL Ur Leukocyte Esterase (Negative) Urine RBC (0-5) /hpf Urine WBC (0-5) /hpf Urine WBC Clumps (None) /hpf Ur Squamous Epith Cells (0-4) /hpf Hyaline Casts (0-2) /lpf Urine Mucus (None) /hpf Urine Yeast (Budding) (None) /hpf 01/18/20 01/18/20 Range/Units 20:57 21:50 WBC (3.8-10.6) k/uL RBC (4.30-5.90) m/uL Hgb (13.0-17.5) gm/dL Hct (39.0-53.0) % MCV (80.0-100.0) fL MCH (25.0-35.0) pg MCHC (31.0-37.0) g/dL RDW (11.5-15.5) % Plt Count (150-450) k/uL Neutrophils % % Lymphocytes % % Monocytes % % Eosinophils % % Basophils % % Neutrophils # (1.3-7.7) k/uL Lymphocytes # (1.0-4.8) k/uL Monocytes # (0-1.0) k/uL Eosinophils # (0-0.7) k/uL Basophils # (0-0.2) k/uL PT (9.0-12.0) sec INR (<1.2) APTT (22.0-30.0) sec Sodium (137-145) mmol/L Potassium (3.5-5.1) mmol/L Chloride (98-107) mmol/L Carbon Dioxide (22-30) mmol/L Anion Gap mmol/L BUN (9-20) mg/dL Creatinine (0.66-1.25) mg/dL Est GFR (CKD-EPI)AfAm (>60 ml/min/1.73 sqM) Est GFR (CKD-EPI)NonAf (>60 ml/min/1.73 sqM) Glucose (74-99) mg/dL Calcium (8.4-10.2) mg/dL Magnesium (1.6-2.3) mg/dL Total Bilirubin (0.2-1.3) mg/dL AST (17-59) U/L ALT (4-49) U/L Alkaline Phosphatase (38-126) U/L Troponin I <0.012 (0.000-0.034) ng/mL Total Protein (6.3-8.2) g/dL Albumin (3.5-5.0) g/dL Urine Color Dark Yellow Urine Appearance Cloudy (Clear) Urine pH 6.0 (5.0-8.0) Ur Specific [place] 1.029 (1.001-1.035) Urine Protein 2+ H (Negative) Urine Glucose (UA) Negative (Negative) Urine Ketones Trace H (Negative) Urine Blood Negative (Negative) Urine Nitrite Negative (Negative) Urine Bilirubin Negative (Negative) Urine Urobilinogen 3.0 (<2.0) mg/dL Ur Leukocyte Esterase Large H (Negative) Urine RBC 38 H (0-5) /hpf Urine WBC >182 H (0-5) /hpf Urine WBC Clumps Occasional H (None) /hpf Ur Squamous Epith Cells 4 (0-4) /hpf Hyaline Casts 125 H (0-2) /lpf Urine Mucus Many H (None) /hpf Urine Yeast (Budding) Occasional H (None) /hpf Disposition Clinical Impression: Dehydration, UTI (urinary tract infection), Near syncope Disposition: HOME SELF-CARE Condition: Good Instructions (If sedation given, give patient instructions): Dizziness (ED), Dehydration (ED), Urinary Tract Infection in Men (ED) Prescriptions: Cephalexin [Keflex] 500 mg PO Q12HR #20 cap Is patient prescribed a controlled substance at d/c from ED?: No Referrals: Russell Brock DO [Primary Care Provider] - 1-2 days Time of Disposition: 22:06
[2020-01-18 21:06] LABS: Basophils # (A) 0.1 k/uL (0-0.2); Basophils % (A) 1 %; Eosinophils # (A) 0.2 k/uL (0-0.7); Eosinophils % (A) 2 %; HCT 51.9 % (39.0-53.0); HGB 17.5 gm/dL (13.0-17.5); Lymphocytes # (A) 1.9 k/uL (1.0-4.8); Lymphocytes % (A) 16 %; MCH 29.4 pg (25.0-35.0); MCHC 33.8 g/dL (31.0-37.0); MCV 87.2 fL (80.0-100.0); Mean Platelet Volume 8.1; Monocytes # (A) 0.5 k/uL (0-1.0); Monocytes % (A) 5 %; Neutrophils # (A) 8.7 k/uL (1.3-7.7); Neutrophils % (A) 76 %; Platelet Count 265 k/uL (150-450); RBC 5.95 m/uL (4.30-5.90); RDW 13.1 % (11.5-15.5); WBC 11.5 k/uL (3.8-10.6)
[2020-01-18 21:21] LABS: INR 0.9 (<1.2); Prothrombin Time 9.8 sec (9.0-12.0)
[2020-01-18 21:22] LABS: Albumin 4.2 g/dL (3.5-5.0); Calcium 9.9 mg/dL (8.4-10.2); Magnesium 2.1 mg/dL (1.6-2.3); Potassium 4.8 mmol/L (3.5-5.1); Total Bilirubin 0.6 mg/dL (0.2-1.3); Total Protein 7.1 g/dL (6.3-8.2)
--- NOTE | 2020-01-18 21:36 | CT ---
EXAMINATION TYPE: CT brain wo con DATE OF EXAM: 01/18/2020 COMPARISON: CT 05/20/2011 HISTORY: Dizziness. CT DLP: 1115.4 mGycm Automated exposure control for dose reduction was used. Helical imaging through the brain FINDINGS: Exam is stable. There is no hemorrhage or hydrocephalus. Cortical atrophy is likely age-related. Calv arium is intact. Paranasal sinuses and mastoid air cells are well aerated. IMPRESSION: NO ACUTE ABNORMALITY, FOLLOW-UP INDICATED
--- NOTE | 2020-01-18 21:37 | XR ---
EXAMINATION TYPE: XR chest 2V DATE OF EXAM: 01/18/2020 COMPARISON: Prior chest x-ray 03/18/2019 HISTORY: Syncope TECHNIQUE: Frontal and lateral views of the chest are obtained. FINDINGS: There are overlying cardiac leads. Probable posttraumatic changes to the distal left clavic le region are stable, chronic. There is no focal air space opacity, pleural effusion, or pneumothorax seen. The cardiac silhouette size is within normal limits. The osseous structures are intact. IMPRESSION: No acute cardiopulmonary process.
[2020-01-18 21:50] LABS: Partial Thromboplastin Time 21.7 sec (22.0-30.0)
[2020-01-18 22:00] LABS: Appearance,Urine Cloudy (Clear); Bilirubin,Urine Negative (Negative); Blood,Urine Negative (Negative); Budding Yeast,Urine Occasional /hpf; Color,Urine Dark Yellow; Glucose,Urine (UA) Negative (Negative); Hyaline Casts,Urine 125 /lpf (0-2); Ketones,Urine Trace (Negative); Leukocyte Esterase,Urine Large (Negative); Mucus,Urine Many /hpf; Nitrite,Urine Negative (Negative); Protein,Urine 2+ (Negative); RBC,Urine 38 /hpf (0-5); Specific Gravity,Urine 1.029 (1.001-1.035); Squamous Epithelial Cell,Urine 4 /hpf (0-4); WBC,Urine >182 /hpf (0-5)
[2020-01-18] MEDS ORDERED: cefTRIAXone IN SWFI 1,000 MG/10 ML SYRINGE IVP STA (22:02)
[2020-01-18 22:12] VITALS: BP 118/90; PULSE 7
== END 2020-01-18 22:35 | disposition home or self-care (01) ==
LOC: EC 20:47
DX: N39.0 Urinary tract infection, site not specified (principal); E86.0 Dehydration; F31.9 Bipolar disorder, unspecified; F17.200 Nicotine dependence, unspecified, uncomplicated; Z79.899 Other long term (current) drug therapy; Z88.0 Allergy status to penicillin
CPT/HCPCS: 36415; 93005; 80053; 83735; 84484; 85025; 85610; 85730; 81001; 87086; 71046; 70450; 99285; 96374; 96361; J0696

== ENCOUNTER → 2020-04-23 | Outpatient (CLI) | payer MEDICARE, OTHER ==
--- NOTE | 2020-04-23 12:17 | US ---
EXAMINATION TYPE: US venous doppler duplex LE RT DATE OF EXAM: 04/23/2020 10:28 AM COMPARISON: NONE CLINICAL HISTORY: 69-year-old male R60.0 LOCALIZED EDEMA. SIDE PERFORMED: Right TECHNIQUE: The lower extremity deep venous system is examined utilizing real time linear array sonog ajay with graded compression, doppler sonography and color-flow sonography. FINDINGS: VESSELS IMAGED: External Iliac Vein (EIV) Common Femoral Vein Deep Femoral Vein Greater Saphenous Vein * Femoral Vein Popliteal Vein Small Saphenous Vein * Proximal Calf Veins (* superficial vessels) Right Leg: Negative for DVT IMPRESSION: No evidence for DVT within the right lower extremity imaged from the groin to the upper calf.
== END | disposition home or self-care (01) ==
LOC: RADUSWWP 10:09
PROVIDERS: ATTEND Family Medicine
DX: R60.0 Localized edema (principal)

== ENCOUNTER 2020-05-07 18:11 | Emergency (ER) | payer MEDICARE, OTHER ==
[2020-05-07 18:22] VITALS: TEMP 99
[2020-05-07 18:41] LABS: Appearance,Urine Cloudy (Clear); Bilirubin,Urine Negative (Negative); Blood,Urine Large (Negative); Color,Urine Light Red; Glucose,Urine (UA) Negative (Negative); Hyaline Casts,Urine 39 /lpf (0-2); Ketones,Urine Trace (Negative); Leukocyte Esterase,Urine Large (Negative); Mucus,Urine Many /hpf; Nitrite,Urine Negative (Negative); PH, Urine 5.5 (5.0-8.0); Protein,Urine 1+ (Negative); RBC,Urine >182 /hpf (0-5); Specific Gravity,Urine 1.026 (1.001-1.035); Squamous Epithelial Cell,Urine 1 /hpf (0-4); Urobilinogen,Urine <2.0 mg/dL (<2.0); WBC,Urine 117 /hpf (0-5)
[2020-05-07 19:47] LABS: Basophils # (A) 0.1 k/uL (0-0.2); Basophils % (A) 1 %; Eosinophils # (A) 0.2 k/uL (0-0.7); Eosinophils % (A) 3 %; HCT 47.8 % (39.0-53.0); HGB 15.6 gm/dL (13.0-17.5); Lymphocytes # (A) 2.3 k/uL (1.0-4.8); Lymphocytes % (A) 27 %; MCH 28.9 pg (25.0-35.0); MCHC 32.7 g/dL (31.0-37.0); MCV 88.3 fL (80.0-100.0); Mean Platelet Volume 8.2; Monocytes # (A) 0.7 k/uL (0-1.0); Monocytes % (A) 7 %; Neutrophils # (A) 5.4 k/uL (1.3-7.7); Neutrophils % (A) 61 %; Platelet Count 233 k/uL (150-450); RBC 5.41 m/uL (4.30-5.90); WBC 8.8 k/uL (3.8-10.6)
[2020-05-07 20:17] LABS: Albumin 4.2 g/dL (3.5-5.0); Calcium 9.4 mg/dL (8.4-10.2); Potassium 5.1 mmol/L (3.5-5.1); Total Bilirubin 0.5 mg/dL (0.2-1.3); Total Protein 6.8 g/dL (6.3-8.2)
[2020-05-07] MEDS ORDERED: CIPROFLOXACIN HCL 500 MG TAB PO STA (20:19)
--- NOTE | 2020-05-07 20:27 | ED ---
Male Urogenital HPI - General Chief complaint: Urogenital Stated complaint: Blood in Urine Time Seen by Provider: 05/07/20 18:15 Source: patient, EMS Mode of arrival: EMS - History of Present Illness Initial comments: Patient is a 69-year-old male presents emergency room with reported hematuria. States that just prior to hospital arrival he urinated blood. He does have a history of prostatic hypertrophy and has a weak stream. States he's never had blood in his urine before. Admits to mild suprapubic discomfort however denies any diffuse abdominal pain. No back or flank pain. No fevers or chills. Denies any nausea or vomiting. Not on any anticoagulation. Denies hematochezia or melenic stools. No other alleviating, precipitating or modifying factors - Related Data Home Medications Medication Instructions Recorded Confirmed buPROPion HCL [Wellbutrin SR] 150 mg PO BID 12/16/18 05/07/20 Spironolactone 50 mg PO AC-SUPPER 03/18/19 05/07/20 Atorvastatin [Lipitor] 20 mg PO HS 01/18/20 05/07/20 Mirtazapine 15 mg PO HS 01/18/20 05/07/20 QUEtiapine [SEROquel] 100 mg PO HS 01/18/20 05/07/20 Sulfamethox-Tmp 800-160Mg [Bactrim 1 tab PO Q12HR 05/07/20 05/07/20 DS 800-160 mg] lisinopriL 20 mg PO DAILY 05/07/20 05/07/20 Previous Rx's Medication Instructions Recorded Ciprofloxacin HCl [Cipro] 500 mg PO Q12HR #14 tablet 05/07/20 Allergies Allergy/AdvReac Type Severity Reaction Status Date / Time Penicillins Allergy Itching Verified 05/07/20 19:12 Review of Systems ROS Statement: Those systems with pertinent positive or pertinent negative responses have been documented in the HPI. ROS Other: All systems not noted in ROS Statement are negative. Past Medical History Past Medical History: COPD History of Any Multi-Drug Resistant Organisms: None Reported Past Surgical History: Orthopedic Surgery Additional Past Surgical History / Comment(s): R femor repair Past Anesthesia/Blood Transfusion Reactions: No Reported Reaction Past Psychological History: Bipolar Smoking Status: Current some day smoker Past Alcohol Use History: Occasional Past Drug Use History: None Reported General Exam General appearance: alert, in no apparent distress Respiratory exam: Present: normal lung sounds bilaterally. Absent: respiratory distress, wheezes, rales, rhonchi, stridor Cardiovascular Exam: Present: regular rate, normal rhythm, normal heart sounds. Absent: systolic murmur, diastolic murmur, rubs, gallop, clicks GI/Abdominal exam: Present: soft, normal bowel sounds. Absent: distended, tenderness, guarding, rebound, rigid exam: Present: normal inspection Course Vital Signs 05/07/20 05/07/20 05/07/20 18:13 19:05 20:53 Temperature 99 F Pulse Rate 78 64 75 Respiratory 18 19 17 Rate Blood Pressure 107/73 100/77 93/64 O2 Sat by Pulse 96 96 96 Oximetry Medical Decision Making - Medical Decision Making The patient placed into room 22. A thorough history and physical exam was performed. Patient does void and his bladder scan. Does have 90 mL of urine in his bladder. Laboratory studies are remarkable for a creatinine of 1.5. This is around the patient's baseline. Urinalysis is grossly positive for blood and white blood cells. Patient is given a dose of Cipro in the emergency room as previous culture results showed that it was sensitive to Cipro. Patient will be discharged home at this time. He felt his primary care physician in regards to symptoms. He is currently on Bactrim for lower trauma swelling and I did recommend that he stop taking this medication and take the Cipro. He has any new or worsening symptoms return to the emergency room. The patient was discharged home in stable condition - Lab Data Result diagrams: 05/07/20 19:38 05/07/20 19:38 Lab Results 05/07/20 05/07/20 05/07/20 Range/Units 18:27 19:38 19:38 WBC 8.8 (3.8-10.6) k/uL RBC 5.41 (4.30-5.90) m/uL Hgb 15.6 (13.0-17.5) gm/dL Hct 47.8 (39.0-53.0) % MCV 88.3 (80.0-100.0) fL MCH 28.9 (25.0-35.0) pg MCHC 32.7 (31.0-37.0) g/dL RDW 13.0 (11.5-15.5) % Plt Count 233 (150-450) k/uL Neutrophils % 61 % Lymphocytes % 27 % Monocytes % 7 % Eosinophils % 3 % Basophils % 1 % Neutrophils # 5.4 (1.3-7.7) k/uL Lymphocytes # 2.3 (1.0-4.8) k/uL Monocytes # 0.7 (0-1.0) k/uL Eosinophils # 0.2 (0-0.7) k/uL Basophils # 0.1 (0-0.2) k/uL Sodium 138 (137-145) mmol/L Potassium 5.1 (3.5-5.1) mmol/L Chloride 105 (98-107) mmol/L Carbon Dioxide 23 (22-30) mmol/L Anion Gap 10 mmol/L BUN 28 H (9-20) mg/dL Creatinine 1.54 H (0.66-1.25) mg/dL Est GFR (CKD-EPI)AfAm 52 (>60 ml/min/1.73 sqM) Est GFR (CKD-EPI)NonAf 45 (>60 ml/min/1.73 sqM) Glucose 83 (74-99) mg/dL Calcium 9.4 (8.4-10.2) mg/dL Total Bilirubin 0.5 (0.2-1.3) mg/dL AST 21 (17-59) U/L ALT 14 (4-49) U/L Alkaline Phosphatase 61 (38-126) U/L Total Protein 6.8 (6.3-8.2) g/dL Albumin 4.2 (3.5-5.0) g/dL Urine Color Light Red Urine Appearance Cloudy (Clear) Urine pH 5.5 (5.0-8.0) Ur Specific [place] 1.026 (1.001-1.035) Urine Protein 1+ H (Negative) Urine Glucose (UA) Negative (Negative) Urine Ketones Trace H (Negative) Urine Blood Large H (Negative) Urine Nitrite Negative (Negative) Urine Bilirubin Negative (Negative) Urine Urobilinogen <2.0 (<2.0) mg/dL Ur Leukocyte Esterase Large H (Negative) Urine RBC >182 H (0-5) /hpf Urine WBC 117 H (0-5) /hpf Ur Squamous Epith Cells 1 (0-4) /hpf Hyaline Casts 39 H (0-2) /lpf Urine Mucus Many H (None) /hpf Disposition Clinical Impression: Hematuria, Urinary tract infection, Chronic kidney disease Disposition: HOME SELF-CARE Condition: Stable Instructions (If sedation given, give patient instructions): Urinary Tract Infection in Men (ED) Additional Instructions: Please follow-up with your primary care doctor to ensure that your symptoms have improved. You may need to see a urologist if your symptoms persist. Return to the emergency room for any new or worsening symptoms Prescriptions: Ciprofloxacin HCl [Cipro] 500 mg PO Q12HR #14 tablet Is patient prescribed a controlled substance at d/c from ED?: No Referrals: Russell Brock DO [Primary Care Provider] - 1-2 days Time of Disposition: 20:27
[2020-05-07 20:54] VITALS: BP 93/64; PULSE 75; RESP 17
== END 2020-05-07 20:55 | disposition home or self-care (01) ==
LOC: EC 18:11
DX: N39.0 Urinary tract infection, site not specified (principal); N18.9 Chronic kidney disease, unspecified; F31.9 Bipolar disorder, unspecified; F17.200 Nicotine dependence, unspecified, uncomplicated; Z79.899 Other long term (current) drug therapy; Z88.0 Allergy status to penicillin
CPT/HCPCS: 36415; 51798; 80053; 81001; 85025; 99284

== ENCOUNTER → 2020-12-22 | Outpatient (CLI) | payer MEDICARE, OTHER ==
--- NOTE | 2020-12-22 16:01 | US ---
EXAMINATION TYPE: US kidneys/renal and bladder DATE OF EXAM: 12/22/2020 COMPARISON: CT Chest CLINICAL HISTORY: N18.42 chronic kidney stage 2. CKD EXAM MEASUREMENTS: Right Kidney: 11.5 x 4.9 x 6.1 cm Left Kidney: 10.9 x 5.5 x 4.6 cm Right Kidney: wnl Left Kidney: Cyst lateral= 1.1 x 1.0 x 1.3 cm . This is not entirely smooth and cannot be classified as a simple cyst. Follow-up can be performed. Bladder: Bladder wall diverticula Bilateral Jets seen: Yes IMPRESSION: 1. Left renal cyst. 2. Urinary bladder wall diverticulum may be present.
== END | disposition home or self-care (01) ==
LOC: RADUSWWP 15:30
PROVIDERS: ATTEND Internal Medicine Nephrology
DX: N28.1 Cyst of kidney, acquired (principal)
CPT/HCPCS: 76770

== ENCOUNTER → 2021-01-20 | Outpatient (CLI) | payer MEDICARE, OTHER ==
[2021-01-20 12:52] LABS: Appearance,Urine Clear (Clear); Bilirubin,Urine Negative (Negative); Blood,Urine Negative (Negative); Color,Urine Light Yellow; Glucose,Urine (UA) Negative (Negative); Ketones,Urine Negative (Negative); Leukocyte Esterase,Urine Negative (Negative); Nitrite,Urine Negative (Negative); PH, Urine 5.5 (5.0-8.0); Protein,Urine Negative (Negative); Specific Gravity,Urine 1.006 (1.001-1.035); Urobilinogen,Urine <2.0 mg/dL (<2.0)
[2021-01-20 13:04] LABS: Creatinine,Urine Random 40.6 mg/dL; Protein/Creatinine Ratio,Urine 0.296
[2021-01-20 18:58] LABS: Basophils # (A) 0.09 X 10*3/uL (0.00-0.10); Basophils % (A) 1.1 %; Eosinophils # (A) 0.23 X 10*3/uL (0.04-0.35); Eosinophils % (A) 2.8 %; HCT 42.8 % (39.6-50.0); HGB 14.1 g/dL (13.0-17.0); Lymphocytes # (A) 1.83 X 10*3/uL (0.90-5.00); Lymphocytes % (A) 22.2 %; MCH 29.3 pg (27.0-32.0); MCHC 32.9 g/dL (32.0-37.0); Mean Platelet Volume 10.9 fL (9.5-12.2); Monocytes % (A) 8.5 %; Neutrophils # (A) 5.38 X 10*3/uL (1.80-7.70); Platelet Count 229 X 10*3/uL (140-440); RBC 4.81 X 10*6/uL (4.40-5.60); RDW 13.2 % (11.5-14.5); WBC 8.26 X 10*3/uL (4.50-10.00)
[2021-01-20 21:08] LABS: % Iron Saturation 15.07 (15.00-50.00); African American GFR (CKD) 78.4 (60.0-200.0); Albumin 4.3 g/dL (3.80-4.90); Anion Gap 8.4 mmol/L (4.00-12.00); BUN/Creat Ratio 16.36 Ratio (12.00-20.00); Calcium 8.7 mg/dL (8.7-10.3); Carbon Dioxide 24.6 mmol/L (21.6-31.8); Magnesium 1.9 mg/dL (1.5-2.4); Non-African American GFR(CKD) 67.7 (60.0-200.0); Phosphorus 3.4 mg/dL (2.4-5.1); Potassium 4.4 mmol/L (3.5-5.5); Uric Acid 6.9 mg/dL (3.7-8.7)
[2021-01-20 21:32] LABS: Ferritin 362.6 ng/mL (22.0-322.0)
== END | disposition home or self-care (01) ==
LOC: LABWHC1 12:27
PROVIDERS: ATTEND Nurse Practitioner Family
DX: N39.0 Urinary tract infection, site not specified (principal); N18.2 Chronic kidney disease, stage 2 (mild); E55.9 Vitamin D deficiency, unspecified; N25.81 Secondary hyperparathyroidism of renal origin; D64.9 Anemia, unspecified; M10.9 Gout, unspecified; R80.9 Proteinuria, unspecified
CPT/HCPCS: 36415; 80048; 81003; 82040; 82306; 82570; 82728; 83540; 83550; 83735; 83970; 84100; 84156; 84550; 85025

== ENCOUNTER → 2021-03-16 | Outpatient (CLI) | payer MEDICARE, OTHER ==
[2021-03-16 10:34] LABS: Appearance,Urine Clear (Clear); Bilirubin,Urine Negative (Negative); Blood,Urine Negative (Negative); Color,Urine Yellow; Glucose,Urine (UA) Negative (Negative); Ketones,Urine Trace (Negative); Leukocyte Esterase,Urine Trace (Negative); Mucus,Urine Rare /hpf; Nitrite,Urine Negative (Negative); Protein,Urine Negative (Negative); RBC,Urine 1 /hpf (0-5); Specific Gravity,Urine 1.017 (1.001-1.035); Urobilinogen,Urine <2.0 mg/dL (<2.0); WBC,Urine 6 /hpf (0-5)
[2021-03-16 10:40] LABS: Creatinine,Urine Random 93.8 mg/dL; Protein/Creatinine Ratio,Urine 0.096
[2021-03-16 16:21] LABS: Basophils # (A) 0.05 X 10*3/uL (0.00-0.10); Basophils % (A) 0.7 %; Eosinophils % (A) 2.8 %; HCT 44.2 % (39.6-50.0); HGB 14.7 g/dL (13.0-17.0); Lymphocytes # (A) 1.58 X 10*3/uL (0.90-5.00); Lymphocytes % (A) 21.9 %; MCH 29.6 pg (27.0-32.0); MCHC 33.3 g/dL (32.0-37.0); MCV 88.9 fL (80.0-97.0); Mean Platelet Volume 11.5 fL (9.5-12.2); Monocytes # (A) 0.74 X 10*3/uL (0.20-1.00); Monocytes % (A) 10.2 %; Neutrophils # (A) 4.64 X 10*3/uL (1.80-7.70); Neutrophils % (A) 64.1 %; Platelet Count 230 X 10*3/uL (140-440); RBC 4.97 X 10*6/uL (4.40-5.60); RDW 13.2 % (11.5-14.5); WBC 7.23 X 10*3/uL (4.50-10.00)
[2021-03-16 22:44] LABS: Calcium 8.8 mg/dL (8.7-10.3); Ferritin 306.3 ng/mL (22.0-322.0); Non-African American GFR(CKD) 75.9 (60.0-200.0); Potassium 4.6 mmol/L (3.5-5.5)
[2021-03-16 22:45] LABS: % Iron Saturation 36.18 (15.00-50.00); Albumin 4.2 g/dL (3.80-4.90); Magnesium 1.8 mg/dL (1.5-2.4); Phosphorus 3.1 mg/dL (2.4-5.1); Uric Acid 6.8 mg/dL (3.7-8.7)
== END | disposition home or self-care (01) ==
LOC: LABWHC1 09:28
PROVIDERS: ATTEND Nurse Practitioner Family
DX: N39.0 Urinary tract infection, site not specified (principal); N18.2 Chronic kidney disease, stage 2 (mild); N25.81 Secondary hyperparathyroidism of renal origin; E55.9 Vitamin D deficiency, unspecified; D64.9 Anemia, unspecified; M10.9 Gout, unspecified; R80.9 Proteinuria, unspecified
CPT/HCPCS: 36415; 80048; 81001; 82040; 82306; 82570; 82728; 83540; 83550; 83735; 83970; 84100; 84156; 84550; 85025

== ENCOUNTER → 2021-09-01 | Outpatient (CLI) | payer MEDICARE, OTHER ==
--- NOTE | 2021-09-01 14:31 | ECHOF ---
Referral Reason:I71.2 thoracic aortic aneurysm without rupture MEASUREMENTS -------- HEIGHT: 188.0 cm WEIGHT: 97.5 kg BP: IVSd: 1.2 cm (0.6 - 1.1) LVIDd: 3.4 cm (3.9 - 5.3) LVPWd: 1.2 cm (0.6 - 1.1) IVSs: 1.7 cm LVIDs: 1.0 cm LVPWs: 1.2 cm LAESV Index (A-L): 20.24 ml/m Ao Diam: 3.8 cm (2.0 - 3.7) AV Cusp: 2.7 cm (1.5 - 2.6) LA Diam: 3.3 cm (2.7 - 3.8) MV EXCURSION: 24.295 mm (> 18.000) MV EF SLOPE: 232 mm/s (70 - 150) EPSS: 2.3 cm MV E Stan: 0.68 m/s MV DecT: 209 ms MV A Stan: 0.63 m/s MV E/A Ratio: 1.08 RAP: 15.00 mmHg RVSP: 29.00 mmHg FINDINGS -------- This was a technically good study. The left ventricular size is normal. There is mild concentric left ventricular hypertrophy. Overa ll left ventricular systolic function is normal with, an EF between 55 - 60 %. The diastolic fillin g pattern is normal for the age of the patient 7.25. The right ventricle is normal in size. The left atrial size is normal. The right atrial size is normal. The aortic valve is trileaflet and appears structurally normal. The mitral valve is normal. Moderate mitral regurgitation is present. The tricuspid valve appears structurally normal. Trace tricuspid regurgitation present. Right robert tricular systolic pressure is normal at < 35 mmHg. There is no pulmonic regurgitation present. The aortic root is dilated measuring 3.8cm. The inferior vena cava is mildly dilated. There is no pericardial effusion. CONCLUSIONS -------- 1. The left ventricular size is normal. 2. There is mild concentric left ventricular hypertrophy. 3. Overall left ventricular systolic function is normal with, an EF between 55 - 60 %. 4. The diastolic filling pattern is normal for the age of the patient 7.25 5. Moderate mitral regurgitation is present. 6. Trace tricuspid regurgitation present. 7. The aortic root is dilated measuring 3.8cm. 8. The inferior vena cava is mildly dilated. 9. There is no pericardial effusion. HAND STRAIGHTENER: Carin Downs RDCS
== END | disposition home or self-care (01) ==
LOC: RADECHMAIN 08:09
PROVIDERS: ATTEND Family Medicine
DX: I08.1 Rheumatic disorders of both mitral and tricuspid valves (principal); I71.2 Thoracic aortic aneurysm, without rupture
CPT/HCPCS: 93306

== ENCOUNTER 2022-02-03 17:16 | Emergency (ER) | payer MEDICARE, OTHER ==
--- NOTE | 2022-02-03 18:32 | ED ---
General Adult HPI - General Chief complaint: Psychiatric Symptoms Stated complaint: depression Time Seen by Provider: 02/03/22 17:25 Source: patient, EMS, RN notes reviewed, old records reviewed Mode of arrival: EMS Limitations: altered mental status - History of Present Illness Initial comments: 71-year-old male presenting for psychiatric evaluation. Patient states he has increased depression and suicidal ideation. Patient states he's been dealing with insomnia and recently quit drinking. He states he quit drinking about 2 or 3 weeks ago. He's been off of his medications for several days. He denies a suicidal plan or attempt. No physical complaints. - Related Data Home Medications Medication Instructions Recorded Confirmed buPROPion HCL [Wellbutrin SR] 150 mg PO BID 12/16/18 05/07/20 Spironolactone 50 mg PO AC-SUPPER 03/18/19 05/07/20 Atorvastatin [Lipitor] 20 mg PO HS 01/18/20 05/07/20 Mirtazapine 15 mg PO HS 01/18/20 05/07/20 QUEtiapine [SEROquel] 100 mg PO HS 01/18/20 05/07/20 Sulfamethox-Tmp 800-160Mg [Bactrim 1 tab PO Q12HR 05/07/20 05/07/20 DS 800-160 mg] lisinopriL 20 mg PO DAILY 05/07/20 05/07/20 Previous Rx's Medication Instructions Recorded Ciprofloxacin HCl [Cipro] 500 mg PO Q12HR #14 tablet 05/07/20 LORazepam [Ativan] 1 mg PO HS 3 Days #3 tab 02/03/22 Allergies Allergy/AdvReac Type Severity Reaction Status Date / Time Penicillins Allergy Itching Verified 05/07/20 19:12 Review of Systems ROS Statement: Those systems with pertinent positive or pertinent negative responses have been documented in the HPI. ROS Other: All systems not noted in ROS Statement are negative. Past Medical History Past Medical History: COPD Additional Past Medical History / Comment(s): alcoholic, "leaky gut" History of Any Multi-Drug Resistant Organisms: None Reported Past Surgical History: Orthopedic Surgery Additional Past Surgical History / Comment(s): R femor repair Past Anesthesia/Blood Transfusion Reactions: No Reported Reaction Past Psychological History: Bipolar Smoking Status: Current some day smoker Past Alcohol Use History: Occasional Past Drug Use History: None Reported General Exam Limitations: altered mental status General appearance: alert, in no apparent distress Head exam: Present: atraumatic, normocephalic Eye exam: Present: normal appearance, PERRL ENT exam: Present: normal exam Neck exam: Present: normal inspection. Absent: tenderness, meningismus Respiratory exam: Present: normal lung sounds bilaterally. Absent: respiratory distress, wheezes Cardiovascular Exam: Present: regular rate, normal rhythm GI/Abdominal exam: Present: soft. Absent: distended, tenderness, guarding Extremities exam: Present: normal inspection, normal capillary refill. Absent: pedal edema, calf tenderness Neurological exam: Present: alert, oriented X3, CN II-XII intact. Absent: motor sensory deficit Psychiatric exam: Present: depressed, suicidal ideation Skin exam: Present: warm, dry, intact. Absent: cyanosis, diaphoretic Course Vital Signs 02/03/22 17:19 Temperature 98.0 F Pulse Rate 64 Respiratory 16 Rate Blood Pressure 135/82 O2 Sat by Pulse 97 Oximetry - Reevaluation(s) Reevaluation #1: 02/03/22 18:31 Cleared for EPS. Medical Decision Making - Medical Decision Making Patient had been evaluated by EPS after he was medically cleared. He was felt to be safe for discharge. He is not actively suicidal. He does have some depression and insomnia. There was request for Ativan to be prescribed for the next several days. He is to follow up with [facility]. Disposition Clinical Impression: Depression Disposition: HOME SELF-CARE Condition: Fair Instructions (If sedation given, give patient instructions): Depression (ED) Additional Instructions: Please follow up with [facility]. Prescriptions: LORazepam [Ativan] 1 mg PO HS 3 Days #3 tab Is patient prescribed a controlled substance at d/c from ED?: No Referrals: Russell Brock DO [Primary Care Provider] - 1-2 days Time of Disposition: 20:28
[2022-02-03] MEDS ORDERED: LORazepam 1 MG TAB PO STA ×2 (20:35→20:36)
[2022-02-03 20:56] VITALS: BP 154/90; PULSE 55; RESP 20; TEMP 97.9
== END 2022-02-03 21:00 | disposition home or self-care (01) ==
LOC: EC 17:16
DX: F32.A Depression, unspecified (principal); R45.851 Suicidal ideations; J44.9 Chronic obstructive pulmonary disease, unspecified; F17.200 Nicotine dependence, unspecified, uncomplicated; Z88.0 Allergy status to penicillin
CPT/HCPCS: 82075; 99284

== ENCOUNTER → 2024-07-29 | Outpatient (CLI) | payer MEDICARE, OTHER ==
--- NOTE | 2024-07-29 11:59 | CTL ---
EXAMINATION TYPE: CT Low Dose Lung DATE OF EXAM ORDERED: 07/29/2024 COMPARISON: CT chest 12/18/2018 CLINICAL INDICATION: Male, 74 years old with history of F17.210 nicotine dependence; PHH, tobacco use r, Lung cancer screening, History of Smoking/tobacco use. TECHNIQUE: Low dose computed tomography scan was performed through the chest at 1 mm thick sections a nd reconstructed images in multiple planes at 1 mm and [address] DLP: 160.[address] CTDI: 3.9 mGy Automated exposure control for dose reduction was used. CT DIAGNOSTIC QUALITY: Satisfactory FINDINGS: Nodules: Posterior left upper lobe stable peripheral calcified granuloma measuring up to 3 mm. No clinically significant pulmonary nodules. LUNGS: COPD: Severity: None Fibrosis: Severity: None Lymph nodes: None Other findings: None RIGHT PLEURAL SPACE: Effusion: None Calcification: None Thickening: None Pneumothorax: None LEFT PLEURAL SPACE: Effusion: None Calcification: None Thickening: None Pneumothorax: None HEART: Heart Size: Normal Coronary Calcification: None Pericardial Effusion: None OTHER FINDINGS: Upper abdomen: None Bony thorax: DISH of the thoracic spine. Supraclavicular region: None Other: Flame-shaped bilateral gynecomastia. Stable ascending thoracic aortic aneurysm measuring up to 4.7 cm. The aortic root measures up to 3.8 cm. The descending thoracic aorta measures up to 3.1 cm. IMPRESSION: 1. No clinically significant pulmonary nodules. 2. Stable ascending thoracic aortic aneurysm measuring up to 4.[address] LUNG RAD AND CT CHEST RECOMMENDATION: Lung-Rad 2 Benign Appearance or Behavior: Continue annual sc reening with LDCT in 12 months. S Modifier (other clinically significant findings): None [facility], , 07/29/2024 11:56 AM
== END | disposition home or self-care (01) ==
LOC: RADCTMAIN 11:09
PROVIDERS: ATTEND Pediatrics
DX: Z12.2 Encounter for screening for malignant neoplasm of respiratory organs (principal); I71.21 Aneurysm of the ascending aorta, without rupture; Z87.891 Personal history of nicotine dependence
CPT/HCPCS: 71271

== ENCOUNTER 2024-10-30 08:54 | Day surgery (SDC) | payer MEDICARE, OTHER ==
[2024-10-29 09:03] VITALS: BMI 28.0
[~2024-10-30 08:54] MED LIST: LIDOCAINE 1% (10MG/ML) FOR IV START INTRADERMA PRN
[2024-10-30] MEDS: LACTATED RINGERS 1,000 ML IV ONE (10:06)
[2024-10-30 10:23] VITALS: TEMP 97
[2024-10-30] MEDS: LACTATED RINGERS 1,000 ML IV SCH (10:34)
[2024-10-30 10:39] LABS: Glucose,Whole Blood 104 mg/dL (70-110)
[2024-10-30] MEDS ORDERED: PROPOFOL 10 MG/ML 20 ML VIAL IV ONE (10:40)
[2024-10-30] MEDS ORDERED: GLUCAGON 1 MG/ML VIAL ONE (10:40)
--- NOTE | 2024-10-30 10:45 | P.GSHP ---
History of Present Illness H&P Date: 10/30/24 Chief Complaint: Screening colonoscopy This a 74-year-old male presents today for screening colonoscopy. Patient denies any significant GI complaints. Past Medical History Past Medical History: COPD, Hyperlipidemia, Hypertension, Prostate Disorder Additional Past Medical History / Comment(s): alcoholic, "leaky gut" History of Any Multi-Drug Resistant Organisms: None Reported Past Surgical History: Orthopedic Surgery Additional Past Surgical History / Comment(s): R femur repair, COLONOSCOPY, LT EYE SX-LOWER LID REATTACHED, Past Anesthesia/Blood Transfusion Reactions: No Reported Reaction Smoking Status: Former smoker - Past Family History Mother Family Medical History: No Reported History Medications and Allergies Home Medications Medication Instructions Recorded Confirmed Type buPROPion HCL [Wellbutrin SR] 150 mg PO BID 12/16/18 10/30/24 History Spironolactone 50 mg PO AC-SUPPER 03/18/19 10/30/24 History Atorvastatin [Lipitor] 20 mg PO HS 01/18/20 10/30/24 History Mirtazapine 15 mg PO HS 01/18/20 10/30/24 History Albuterol Sulfate [Proair 1 puff INHALATION Q6H PRN 10/29/24 10/30/24 History Respiclick] Dapagliflozin Propanediol [Farxiga] 10 mg PO DAILY 10/29/24 10/30/24 History Divalproex ER [Depakote ER] 500 mg PO TID 10/29/24 10/30/24 History Tamsulosin [Flomax] 0.4 mg PO DAILY 10/29/24 10/30/24 History amLODIPine [Norvasc] 5 mg PO DAILY 10/29/24 10/30/24 History hydrOXYzine HCL [Atarax] 25 mg PO TID 10/29/24 10/30/24 History oxyBUTYnin chloride [oxyBUTYnin 5 mg PO DAILY 10/29/24 10/30/24 History chloride ER] Allergies Allergy/AdvReac Type Severity Reaction Status Date / Time Penicillins Allergy Itching Verified 10/30/24 10:14 Surgical - Exam Vital Signs Temp Pulse Resp BP Pulse Ox 97 F L 68 18 128/81 99 10/30/24 10:18 10/30/24 10:18 10/30/24 10:18 10/30/24 10:18 10/30/24 10:18 - General well developed, well nourished, no distress - Eyes PERRL - ENT normal pinna - Neck no masses - Cardiovascular Rhythm: regular - Abdomen Abdomen: soft, non tender Assessment and Plan Assessment: Will perform screening colonoscopy
--- NOTE | 2024-10-30 11:06 | P.OP ---
Date of Procedure: 10/30/24 Preoperative Diagnosis: Colonoscopy Postoperative Diagnosis: Severe diverticulosis Sigmoid colon polyp Procedure(s) Performed: Colonoscopy Anesthesia: MAC Surgeon: Kirill Kumar Pathology: other (Sigmoid colon polyp) Condition: stable Disposition: PACU Description of Procedure: The patient was placed on the endoscopy table in the lateral position. He received IV sedation. Digital rectal exam was performed. This revealed no abnormality. Flex colonoscope was then placed patient anus passed throughout the the colon. Scope could not be passed beyond the splenic flexure secondary to tortuosity of the colon and severe diverticulosis. Scope was withdrawn. In the sigmoid colon there was a large pedunculated polyp. This removed with snare. Scope was brought back to the rectum this appeared withdrawn for the patient. Patient be scheduled for outpatient. Barium enema.
[2024-10-30 12:02] VITALS: BP 118/71; PULSE 74; RESP 20
== END 2024-10-30 12:03 | disposition home or self-care (01) ==
LOC: ORWHC2ENDO 08:54
PROVIDERS: ATTEND Surgery
DX: Z12.11 Encounter for screening for malignant neoplasm of colon (principal); K57.30 Diverticulosis of large intestine without perforation or abscess without bleeding; K63.5 Polyp of colon; J44.9 Chronic obstructive pulmonary disease, unspecified; E78.5 Hyperlipidemia, unspecified; I10 Essential (primary) hypertension; Z87.891 Personal history of nicotine dependence; Z88.0 Allergy status to penicillin; Z79.51 Long term (current) use of inhaled steroids
CPT/HCPCS: 45385; J1610; J2704; 88305

== ENCOUNTER → 2024-11-19 | Outpatient (CLI) | payer MEDICARE, OTHER ==
--- NOTE | 2024-11-19 09:58 | XR ---
EXAMINATION TYPE: XR abdomen 1V DATE OF EXAM: 11/19/2024 9:33 AM COMPARISON: None CLINICAL INDICATION: Male, 74 years old with history of DIVERTICULITIS; [facility] TECHNIQUE: One radiographic view of the abdomen was obtained. FINDINGS: The bowel gas pattern is nonspecific without dilated loops of small or large bowel. . Fecal material and gas are demonstrated throughout the colon and rectum. There is no evidence for organome ankit or pneumoperitoneum. Degeneration changes of the spine. No acute osseous process. No abnormal calcifications are present. IMPRESSION: Nonspecific bowel gas pattern without radiographic evidence for acute process. [facility], , 11/19/2024 9:56 AM
== END | disposition home or self-care (01) ==
LOC: RADFLMAIN 08:46
PROVIDERS: ATTEND Surgery
DX: K57.92 Diverticulitis of intestine, part unspecified, without perforation or abscess without bleeding (principal)
CPT/HCPCS: 74018

== ENCOUNTER 2024-11-29 07:24 | Inpatient (IN) | payer MEDICARE, OTHER ==
--- NOTE | 2024-11-29 07:46 | ED ---
General Adult HPI - General Chief complaint: Chest Pain Stated complaint: cp Time Seen by Provider: 11/29/24 07:27 Source: patient, RN notes reviewed Mode of arrival: ambulatory Limitations: no limitations - History of Present Illness Initial comments: Patient is a 74-year-old male presenting to the emergency department with concern for chest discomfort. Onset of symptoms was when he woke this morning. Patient is unclear when that was. Patient states it feels like a dull ache. Patient states it was mild. Patient states its essentially resolved at this time. Patient believes he may have had a history of previous dysrhythmia. Patient believes he may be on blood thinners. No new dyspnea. Patient is somewhat a poor historian. - Related Data Home Medications Medication Instructions Recorded Confirmed buPROPion HCL [Wellbutrin SR] 150 mg PO BID 12/16/18 10/30/24 Spironolactone 50 mg PO AC-SUPPER 03/18/19 10/30/24 Atorvastatin [Lipitor] 20 mg PO HS 01/18/20 10/30/24 Mirtazapine 15 mg PO HS 01/18/20 10/30/24 Albuterol Sulfate [Proair 1 puff INHALATION Q6H PRN 10/29/24 10/30/24 Respiclick] Dapagliflozin Propanediol [Farxiga] 10 mg PO DAILY 10/29/24 10/30/24 Divalproex ER [Depakote ER] 500 mg PO TID 10/29/24 10/30/24 Tamsulosin [Flomax] 0.4 mg PO DAILY 10/29/24 10/30/24 amLODIPine [Norvasc] 5 mg PO DAILY 10/29/24 10/30/24 hydrOXYzine HCL [Atarax] 25 mg PO TID 10/29/24 10/30/24 oxyBUTYnin chloride [oxyBUTYnin 5 mg PO DAILY 10/29/24 10/30/24 chloride ER] Allergies Allergy/AdvReac Type Severity Reaction Status Date / Time Penicillins Allergy Itching Verified 11/29/24 07:32 Review of Systems ROS Statement: Those systems with pertinent positive or pertinent negative responses have been documented in the HPI. ROS Other: All systems not noted in ROS Statement are negative. Constitutional: Denies: fever Eyes: Denies: eye pain ENT: Denies: ear pain Respiratory: Denies: dyspnea Cardiovascular: Reports: as per HPI, chest pain Gastrointestinal: Denies: abdominal pain Musculoskeletal: Denies: back pain Past Medical History Past Medical History: COPD, Hyperlipidemia, Hypertension, Prostate Disorder Additional Past Medical History / Comment(s): alcoholic, "leaky gut" History of Any Multi-Drug Resistant Organisms: None Reported Past Surgical History: Orthopedic Surgery Additional Past Surgical History / Comment(s): R femur repair, COLONOSCOPY, LT EYE SX-LOWER LID REATTACHED, Past Anesthesia/Blood Transfusion Reactions: No Reported Reaction Past Psychological History: Bipolar Smoking Status: Former smoker - Past Family History Mother Family Medical History: No Reported History General Exam Limitations: no limitations General appearance: alert, in no apparent distress Head exam: Present: normocephalic Eye exam: Present: normal appearance Neck exam: Present: normal inspection Respiratory exam: Present: normal lung sounds bilaterally. Absent: chest wall tenderness Cardiovascular Exam: Present: irregular rhythm, normal heart sounds Expanded Peripheral pulses: 2+: Radial (R), Radial (L), Posterior Tibialis (R), Posterior Tibialis (L) GI/Abdominal exam: Present: soft. Absent: tenderness Extremities exam: Present: normal inspection. Absent: pedal edema, calf tenderness Neurological exam: Present: alert Psychiatric exam: Present: normal affect, normal mood Skin exam: Present: normal color Course Vital Signs 11/29/24 07:28 Temperature 97.9 F Pulse Rate 82 Respiratory 18 Rate Blood Pressure 113/79 O2 Sat by Pulse 98 Oximetry EKG Findings - EKG Results: EKG: interpreted by ERMD (PVC present), normal axis, normal QRS, normal ST/T EKG shows: atrial fibrillation Medical Decision Making - Medical Decision Making Was pt. sent in by a medical professional or institution (, PA, METEOROLOGY INSTRUCTOR, urgent care, hospital, or senior care...) When possible be specific @ -No Did you speak to anyone other than the patient for history (EMS, parent, family, police, friend...)? What history was obtained from this source @ -No Did you review nursing and triage notes (agree or disagree)? Why? @ -I reviewed and agree with nursing and triage notes Were old charts reviewed (outside hosp., previous admission, EMS record, old EKG, old radiological studies, urgent care reports/EKG's, senior care records)? Report findings @ -No old charts were reviewed Differential Diagnosis (chest pain, altered mental status, abdominal pain women, abdominal pain men, vaginal bleeding, weakness, fever, dyspnea, syncope, headache, dizziness, GI bleed, back pain, seizure, CVA, palpatations, mental health, musculoskeletal)? @ -Differential Chest Pain: Stable Angina, Unstable Angina, STEMI, NSTEMI Aortic Dissection, Pneumothorax, Musculoskeletal, Esophageal Spasm GERD, Cholecystitis, Pancreatitis, Zoster, this is not meant to be an all-inclusive list. EKG interpreted by me (3pts min.). @ -As above X-rays interpreted by me (1pt min.). @ -Chest x-ray shows no acute process CT interpreted by me (1pt min.). @ -None done U/S interpreted by me (1pt. min.). @ -None done What testing was considered but not performed or refused? (CT, X-rays, U/S, labs)? Why? @ -None What meds were considered but not given or refused? Why? @ -None Did you discuss the management of the patient with other professionals (professionals i.e. , PA, METEOROLOGY INSTRUCTOR, lab, RT, psych nurse, health care social worker, air and water tester, teacher, airfield services officer, nurse outreach case manager)? Give summary @ -Case was discussed with Dr. Rapp who will admit covering Dr. Brock Was smoking cessation discussed for >3mins.? @ -No Was critical care preformed (if so, how long)? @ -No Were there social determinants of health that impacted care today? How? (Homelessness, low income, unemployed, alcoholism, drug addiction, transpor tation, low edu. Level, literacy, decrease access to med. care, fci, rehab)? @ -No Was there de-escalation of care discussed even if they declined (Discuss DNR or withdrawal of care, Hospice)? DNR status @ -No What co-morbidities impacted this encounter? (DM, HTN, Smoking, COPD, CAD, Cancer, CVA, ARF, Chemo, Hep., AIDS, mental health diagnosis, sleep apnea, morbid obesity)? @ -None Was patient admitted / discharged? Hospital course, mention meds given and route, prescriptions, significant lab abnormalities, going to OR and other pertinent info. @ -Patient presents with chest discomfort since this morning. Initial evaluation unremarkable. Patient will be admitted with cardiac consult. Admission orders written. Patient reevaluated and updated. Undiagnosed new problem with uncertain prognosis? @ -No Drug Therapy requiring intensive monitoring for toxicity (Heparin, Nitro, Insulin, Cardizem)? @ -No Were any procedures done? @ -No Diagnosis/symptom? @ -Chest pain Acute, or Chronic, or Acute on Chronic? @ -Acute Uncomplicated (without systemic symptoms) or Complicated (systemic symptoms)? @ -Default Side effects of treatment? @ -No Exacerbation, Progression, or Severe Exacerbation? @ -No Poses a threat to life or bodily function? How? (Chest pain, USA, MA, pneumonia, PE, COPD, DKA, ARF, appy, cholecystitis, CVA, Diverticulitis, Homicidal, Suicidal, threat to staff... and all critical care pts) @ -Threat to cardiac function - Lab Data Result diagrams: 11/29/24 07:45 11/29/24 08:41 Lab Results 11/29/24 11/29/24 11/29/24 Range/Units 07:45 07:45 07:45 WBC 7.5 (3.8-10.6) k/uL RBC 5.21 (4.30-5.90) m/uL Hgb 15.0 (13.0-17.5) gm/dL Hct 44.3 (39.0-53.0) % MCV 85.0 (80.0-100.0) fL MCH 28.7 (25.0-35.0) pg MCHC 33.8 (31.0-37.0) g/dL RDW 13.7 (11.5-15.5) % Plt Count 208 (150-450) k/uL MPV 8.9 Neutrophils % 65 % Lymphocytes % 23 % Monocytes % 7 % Eosinophils % 3 % Basophils % 0 % Neutrophils # 4.9 (1.3-7.7) k/uL Lymphocytes # 1.7 (1.0-4.8) k/uL Monocytes # 0.5 (0-1.0) k/uL Eosinophils # 0.2 (0-0.7) k/uL Basophils # 0.0 (0-0.2) k/uL PT 10.5 (10.0-12.5) sec INR 0.9 (<1.2) APTT 22.6 (22.0-30.0) sec D-Dimer 0.65 H (<0.60) mg/L FEU Sodium (137-145) mmol/L Potassium (3.5-5.1) mmol/L Chloride (98-107) mmol/L Carbon Dioxide (22-30) mmol/L Anion Gap mmol/L BUN (9-20) mg/dL Creatinine (0.66-1.25) mg/dL Est GFR (CKD-EPI)AfAm (>60 ml/min/1.73 sqM) Est GFR (CKD-EPI)NonAf (>60 ml/min/1.73 sqM) Glucose (74-99) mg/dL Calcium (8.4-10.2) mg/dL Magnesium (1.6-2.3) mg/dL Total Bilirubin (0.2-1.3) mg/dL AST (17-59) U/L ALT (4-49) U/L Alkaline Phosphatase (38-126) U/L Troponin I <0.012 (0.000-0.034) ng/mL Total Protein (6.3-8.2) g/dL Albumin (3.5-5.0) g/dL Lipase (23-300) U/L 11/29/24 Range/Units 08:41 WBC (3.8-10.6) k/uL RBC (4.30-5.90) m/uL Hgb (13.0-17.5) gm/dL Hct (39.0-53.0) % MCV (80.0-100.0) fL MCH (25.0-35.0) pg MCHC (31.0-37.0) g/dL RDW (11.5-15.5) % Plt Count (150-450) k/uL MPV Neutrophils % % Lymphocytes % % Monocytes % % Eosinophils % % Basophils % % Neutrophils # (1.3-7.7) k/uL Lymphocytes # (1.0-4.8) k/uL Monocytes # (0-1.0) k/uL Eosinophils # (0-0.7) k/uL Basophils # (0-0.2) k/uL PT (10.0-12.5) sec INR (<1.2) APTT (22.0-30.0) sec D-Dimer (<0.60) mg/L FEU Sodium 139 (137-145) mmol/L Potassium 4.2 (3.5-5.1) mmol/L Chloride 106 (98-107) mmol/L Carbon Dioxide 27 (22-30) mmol/L Anion Gap 6 mmol/L BUN 19 (9-20) mg/dL Creatinine 0.94 (0.66-1.25) mg/dL Est GFR (CKD-EPI)AfAm >90 (>60 ml/min/1.73 sqM) Est GFR (CKD-EPI)NonAf 80 (>60 ml/min/1.73 sqM) Glucose 97 (74-99) mg/dL Calcium 8.8 (8.4-10.2) mg/dL Magnesium 2.2 (1.6-2.3) mg/dL Total Bilirubin 0.5 (0.2-1.3) mg/dL AST 16 L (17-59) U/L ALT 20 (4-49) U/L Alkaline Phosphatase 65 (38-126) U/L Troponin I (0.000-0.034) ng/mL Total Protein 6.4 (6.3-8.2) g/dL Albumin 4.0 (3.5-5.0) g/dL Lipase 81 (23-300) U/L Disposition Clinical Impression: Chest pain Disposition: ADMITTED IP TO THIS HOSP Is patient prescribed a controlled substance at d/c from ED?: No Referrals: Russell Brock DO [Primary Care Provider] - 1-2 days Time of Disposition: 09:21
[2024-11-29 07:59] LABS: Basophils % (A) 0 %; Eosinophils # (A) 0.2 k/uL (0-0.7); Eosinophils % (A) 3 %; HCT 44.3 % (39.0-53.0); Lymphocytes # (A) 1.7 k/uL (1.0-4.8); Lymphocytes % (A) 23 %; MCH 28.7 pg (25.0-35.0); MCHC 33.8 g/dL (31.0-37.0); Mean Platelet Volume 8.9; Monocytes # (A) 0.5 k/uL (0-1.0); Monocytes % (A) 7 %; Neutrophils # (A) 4.9 k/uL (1.3-7.7); Neutrophils % (A) 65 %; Platelet Count 208 k/uL (150-450); RBC 5.21 m/uL (4.30-5.90); RDW 13.7 % (11.5-15.5); WBC 7.5 k/uL (3.8-10.6)
[2024-11-29] MEDS: ASPIRIN 81 MG PO STA (07:59)
[2024-11-29] MEDS: NITROGLYCERIN OINT 1 INCH/GM PACKET TOPICAL STA (08:01)
[2024-11-29 08:13] LABS: INR 0.9 (<1.2); Partial Thromboplastin Time 22.6 sec (22.0-30.0); Prothrombin Time 10.5 sec (10.0-12.5)
--- NOTE | 2024-11-29 08:35 | XR ---
EXAMINATION TYPE: XR chest 2V DATE OF EXAM: 11/29/2024 CLINICAL INDICATION: Male, 74 years old with history of Chest Pain, TECHNIQUE: Frontal and lateral views of the chest are obtained. COMPARISON: Chest x-ray January 18, 2020 FINDINGS: There is no focal air space opacity, pleural effusion, or pneumothorax seen. Underlying em physematous change suspected on lateral view. The cardiac silhouette size is stable and within normal limits. Multilevel spurring and bridging osteophytes in the thoracic spine are redemonstrated. IMPRESSION: No acute process. No significant change from prior. [facility], , 11/29/2024 8:32 AM
[2024-11-29 09:17] LABS: ALT 20 U/L (4-49); AST 16 U/L (17-59); African American GFR (CKD) >90 (>60 ml/min/1.73 sqM); Alkaline Phosphatase 65 U/L (38-126); Anion Gap 6 mmol/L; Blood Urea Nitrogen 19 mg/dL (9-20); Calcium 8.8 mg/dL (8.4-10.2); Carbon Dioxide 27 mmol/L (22-30); Chloride 106 mmol/L (98-107); Glucose 97 mg/dL (74-99); Lipase 81 U/L (23-300); Magnesium 2.2 mg/dL (1.6-2.3); Non-African American GFR(CKD) 80 (>60 ml/min/1.73 sqM); Potassium 4.2 mmol/L (3.5-5.1); Sodium 139 mmol/L (137-145); Total Bilirubin 0.5 mg/dL (0.2-1.3); Total Protein 6.4 g/dL (6.3-8.2)
[2024-11-29] MEDS ORDERED: NITROGLYCERIN SL TABS 0.4 MG TAB SUBLINGUAL PRN (09:21)
[2024-11-29] MEDS ORDERED: hydrOXYzine HCL 25 MG TAB PO PRN (12:11)
[2024-11-29] MEDS ORDERED: ALBUTEROL NEBULIZED 2.5 MG/3 ML INHALATION PRN (12:11)
[2024-11-29] MEDS: NITROGLYCERIN OINT 1 INCH/GM PACKET TOPICAL SCH (13:39)
[2024-11-29] MEDS: SPIRONOLACTONE 25 MG TAB PO SCH (16:11)
[2024-11-29] MEDS: DIVALPROEX 500 MG TABLET.DR PO SCH (16:11)
[2024-11-29] MEDS: FAMOTIDINE 20 MG/2 ML VIAL IV SCH (19:56)
[2024-11-29] MEDS: ATORVASTATIN 20 MG TAB PO SCH (19:57)
[2024-11-29] MEDS: MIRTAZAPINE 15 MG TAB PO SCH (19:57)
[2024-11-29] MEDS: buPROPion SR 150 MG TABLET.ER PO SCH (19:57)
[2024-11-29] MEDS ORDERED: APIXABAN 5 MG TAB PO SCH (21:00)
[2024-11-29] MEDS ORDERED: HEPARIN SODIUM,PORCINE 5,000 UNIT/ML 1 ML VIAL SQ SCH (21:00)
--- NOTE | 2024-11-29 22:03 | P.HPIM ---
History of Present Illness This is a pleasant 74 years old male with past medical history of multiple medical problems including hypertension, COPD, BPH, bipolar disorder, anxiety, hyperlipidemia Presents because of chest dullness rather than chest pain as he states, he has been going on for about months, patient is stating he is not sleeping good for a long time, he wake up in the middle of the night, feeling tired he feels dysfunctional, currently is dialysis 0/10. States his illness comes and goes with no obvious precipitating or relieving factors. Patient states he just had colonoscopy 2 days ago and he has little bit of spasm in his belly which is resolved now He is currently on Depakote for his bipolar. He has history of A-fib but not sure about that. He does not think him takes aspirin at home. He has some itching and scabs in both upper and lower extremity which are sporadic Hemodynamically stable and is afebrile Labs were unremarkable including CBC, BMP, LFT. Troponin x 2 are negative less than 0.012. D-dimer is 0.65 which is within the reference range of its corrected for age as patient is 74 years old Chest x-ray showing no acute cardiopulmonary process EKG showing A-fib at [address] elevation but there is aberrant conduction versus PVCs TSH normal at 1.6. Patient started on aspirin Review of Systems Review of systems CONSTITUTIONAL: No fever, no malaise, no fatigue. HEENT: No recent visual problems or hearing problems. Denied any sore throat. CARDIOVASCULAR: No orthopnea, PND, no palpitations, no syncope. PULMONARY: No shortness of breath, no cough, no hemoptysis. GASTROINTESTINAL: No diarrhea, no nausea, no vomiting, no abdominal pain. Normoactive bowel sounds. NEUROLOGICAL: No headaches, no weakness, no numbness. HEMATOLOGICAL: Denies any bleeding or petechiae. GENITOURINARY: Denies any burning micturition, frequency, or urgency. MUSCULOSKELETAL/RHEUMATOLOGICAL: Denies any joint pain, swelling, or any muscle pain. ENDOCRINE: Denies any polyuria or polydipsia. Past Medical History Past Medical History: COPD, Hyperlipidemia, Hypertension, Prostate Disorder Additional Past Medical History / Comment(s): alcoholic, "leaky gut" History of Any Multi-Drug Resistant Organisms: None Reported Past Surgical History: Orthopedic Surgery Additional Past Surgical History / Comment(s): R femur repair, COLONOSCOPY, LT E YE SX-LOWER LID REATTACHED, Past Anesthesia/Blood Transfusion Reactions: No Reported Reaction Past Psychological History: Bipolar Smoking Status: Former smoker Past Alcohol Use History: Occasional Additional Past Alcohol Use History / Comment(s): QUIT SMOKING 10 DAYS AGO-SMO KED 1 PPD OFF AND SINCE AGE 30. RECOVERING ALCOHOLIC-LAST DRINK ABOUT 30 DAYS AGO Past Drug Use History: None Reported - Past Family History Mother Family Medical History: No Reported History Medications and Allergies Home Medications Medication Instructions Recorded Confirmed Type buPROPion HCL [Wellbutrin SR] 150 mg PO BID 12/16/18 11/29/24 History Spironolactone 50 mg PO W/SUPPER 03/18/19 11/29/24 History Atorvastatin [Lipitor] 20 mg PO HS 01/18/20 11/29/24 History Mirtazapine 15 mg PO HS 01/18/20 11/29/24 History Dapagliflozin Propanediol [Farxiga] 10 mg PO DAILY 10/29/24 11/29/24 History Tamsulosin [Flomax] 0.4 mg PO DAILY 10/29/24 11/29/24 History amLODIPine [Norvasc] 5 mg PO DAILY 10/29/24 11/29/24 History hydrOXYzine HCL [Atarax] 25 mg PO TID 10/29/24 11/29/24 History oxyBUTYnin chloride [oxyBUTYnin 5 mg PO DAILY 10/29/24 11/29/24 History chloride ER] Albuterol Sulfate [Albuterol 1 - 2 puff PO RT-Q6H PRN 11/29/24 11/29/24 History Sulfate Hfa] Divalproex Sodium [Depakote] 500 mg PO TID 11/29/24 11/29/24 History Allergies Allergy/AdvReac Type Severity Reaction Status Date / Time Penicillins Allergy Itching/Narciso Verified 11/29/24 09:32 h/Hives Physical Exam Vitals: Vital Signs Temp Pulse Pulse Resp BP BP BP 11/29/24 15:00 98.4 F 61 16 106/62 11/29/24 11:20 97.5 F L 50 L 14 109/45 11/29/24 10:49 98.3 F 52 L 16 108/71 11/29/24 09:31 78 18 122/78 11/29/24 07:28 97.9 F 82 18 113/79 Pulse Ox 11/29/24 15:00 94 L 11/29/24 11:20 100 11/29/24 10:49 98 11/29/24 09:31 98 11/29/24 07:28 98 Intake and Output 11/29/24 11/29/24 11/29/24 06:59 14:59 22:59 Other: # Voids 1 Weight 104.326 kg GENERAL: The patient is alert and oriented x3, not in any acute distress. Well developed, well nourished. HEENT: Pupils are round and equally reacting to light. EOMI. No scleral icterus. No conjunctival pallor. Normocephalic, atraumatic. No pharyngeal erythema. No thyromegaly. CARDIOVASCULAR: S1 and S2 present. No murmurs, rubs, or gallops. PULMONARY: Chest is clear to auscultation, no wheezing , no crackles. ABDOMEN: Soft, nontender, nondistended, normoactive bowel sounds. No palpable organomegaly. MUSCULOSKELETAL: No joint swelling or deformity. EXTREMITIES: No cyanosis, clubbing, or pedal edema. NEUROLOGICAL: Gross neurological examination did not reveal any focal deficits. SKIN: No rashes. no petechiae. Results CBC & Chem 7: 11/29/24 07:45 11/29/24 08:41 Labs: Abnormal Lab Results - Last 24 Hours (Table) 11/29/24 11/29/24 Range/Units 07:45 08:41 D-Dimer 0.65 H (<0.60) mg/L FEU AST 16 L (17-59) U/L Assessment and Plan Assessment: Chest pain, rule out cardiac causes Bipolar with anxiety Insomnia and feeling dysfunctional with some symptoms of tiredness COPD Hyperlipidemia Hypertension Anxiety Benign prostatic hypertrophy Plan: Cardiology consult Continue with aspirin Psychiatry my help evaluating the patient Labs and medication were reviewed.. Continue same treatment. Continue with symptomatic treatment. Resume home medication. Monitor labs and vitals. DVT and GI prophylaxis. Further recommendations as per clinical course of the patient DVT prophylaxis: Subcutaneous heparin GI Prophylaxis: Pepcid Prognosis is guarded
[2024-11-30 10:00] LABS: Chol/HDL Ratio 3.01 Ratio; LDL Cholesterol,Calculated 61.1 mg/dL (0.0-131.0)
[2024-11-30] MEDS: TAMSULOSIN 0.4 MG CAP.ER.24H PO SCH (10:24)
[2024-11-30] MEDS: amLODIPine 5 MG TAB PO SCH (10:24)
[2024-11-30] MEDS: ASPIRIN 325 MG TAB PO SCH (10:24)
[2024-11-30] MEDS: DAPAGLIFLOZIN PROPANEDIOL 10 MG TABLET PO SCH (10:24)
[2024-11-30] MEDS: OXYBUTYNIN XL 5 MG TAB.ER.24 PO SCH (10:24)
--- NOTE | 2024-11-30 10:58 | P.CRDCN ---
History of Present Illness Consult date: 11/30/24 Consult reason: chest pain History of present illness: This is Srikanth Adames NP, I'm dictating on behalf of Dr. Mccabe's H&P and A&P The patient was interviewed and examined. HPI: Patient is a pleasant 74-year-old male with a past medical history that includes COPD, hyperlipidemia, hypertension, alcohol use, and enlarged prostate who presented to the hospital with complaints of chest discomfort. Patient reports symptom onset was when he woke up yesterday morning. Reports the pain is a dull ache, mild, midsternal. He denies shortness of breath. Initial EKG demonstrated sinus rhythm with PACs. Troponins have been negative x 3. A repeat EKG showed normal sinus rhythm with sinus bradycardia. Patient reports that he feels fine this morning. He is not experiencing any of the same symptoms that he had yesterday. Patient admits to a poor memory. Patient approximates chest discomfort for approximately 30 to 40 minutes. Nursing showed us 1 episode of nonsustained V. tach earlier this morning. ROS: [No fever, chills, or rigors] [no cough, phlegm, or expectoration] [no nausea, vomiting, or diarrhea] [no hematuria, dysuria] [no musculoskelatal complaints] [no strokes or seizures] [no skin lesions] EXAMINATION: GENERAL: Well-appearing, well-nourished and in no acute distress. NECK: Supple without JVD or thyromegaly. LUNGS: Breath sounds clear to auscultation bilaterally. Respiration equal and unlabored. No wheezes, rales or rhonchi. HEART: Regular rate and rhythm without murmurs, rubs or gallops. S1 and S2 heard. EXTREMITIES: Normal range of motion, no edema. No clubbing or cyanosis. Peripheral pulses intact and strong. REVIEW OF LABS, ECG & MEDICAL DATA: LABS: White count 7.5, hemoglobin 15, platelet 208, D-dimer 0.65, sodium 139, potassium 4.2, BUN 19, creatinine 0.94, magnesium 2.2, troponin-less than 0.012 x 3, triglycerides 115, cholesterol 126, LDL 61.1, HDL 41.9, TSH 1.68 EKG: Normal sinus rhythm with PACs; sinus bradycardia IMAGING: Chest x-ray dated 11/29/2024 demonstrates no acute process, no significant change from prior. VITALS: Temp 97.6, pulse 64, respirations 16, blood pressure 124/76, O2 saturation 99% on room air IMPRESSION: 1. Chest pain 2. History of hypertension, controlled 3. History of COPD 4. Nonsustained ventricular tachycardia/nonsustained atrial arrhythmias PLAN: Dobutamine stress echo tomorrow. Patient is also experiencing minor episodes of nonsustained ventricular tachycardia with nonsustained atrial arrhythmias. Highly recommend he quit drinking alcohol. Continue current medications as ordered. Further recommendations based on patient's clinical course. Thank you for the consult and allowing us to participate in the care of this patient. Past Medical History Past Medical History: COPD, Hyperlipidemia, Hypertension, Prostate Disorder Additional Past Medical History / Comment(s): alcoholic, "leaky gut" History of Any Multi-Drug Resistant Organisms: None Reported Past Surgical History: Orthopedic Surgery Additional Past Surgical History / Comment(s): R femur repair, COLONOSCOPY, LT EYE SX-LOWER LID REATTACHED, Past Anesthesia/Blood Transfusion Reactions: No Reported Reaction Past Psychological History: Bipolar Smoking Status: Former smoker Past Alcohol Use History: Occasional Additional Past Alcohol Use History / Comment(s): QUIT SMOKING 10 DAYS AGO- SMOKED 1 PPD OFF AND SINCE AGE 30. RECOVERING ALCOHOLIC-LAST DRINK ABOUT 30 DAYS AGO Past Drug Use History: None Reported - Past Family History Mother Family Medical History: No Reported History Medications and Allergies Home Medications Medication Instructions Recorded Confirmed Type buPROPion HCL [Wellbutrin SR] 150 mg PO BID 12/16/18 11/29/24 History Spironolactone 50 mg PO W/SUPPER 03/18/19 11/29/24 History Atorvastatin [Lipitor] 20 mg PO HS 01/18/20 11/29/24 History Mirtazapine 15 mg PO HS 01/18/20 11/29/24 History Dapagliflozin Propanediol [Farxiga] 10 mg PO DAILY 10/29/24 11/29/24 History Tamsulosin [Flomax] 0.4 mg PO DAILY 10/29/24 11/29/24 History amLODIPine [Norvasc] 5 mg PO DAILY 10/29/24 11/29/24 History hydrOXYzine HCL [Atarax] 25 mg PO TID 10/29/24 11/29/24 History oxyBUTYnin chloride [oxyBUTYnin 5 mg PO DAILY 10/29/24 11/29/24 History chloride ER] Albuterol Sulfate [Albuterol 1 - 2 puff PO RT-Q6H PRN 11/29/24 11/29/24 History Sulfate Hfa] Divalproex Sodium [Depakote] 500 mg PO TID 11/29/24 11/29/24 History Allergies Allergy/AdvReac Type Severity Reaction Status Date / Time Penicillins Allergy Itching/Narciso Verified 11/29/24 09:32 h/Hives Physical Exam Vitals: Vital Signs Temp Pulse Resp BP BP Pulse Ox 11/30/24 09:22 99 11/30/24 07:13 97.6 F 64 16 124/76 99 11/30/24 01:12 97.5 F L 65 18 120/69 95 11/29/24 19:05 97.6 F 64 16 129/75 100 11/29/24 15:00 98.4 F 61 16 106/62 94 L 11/29/24 11:20 97.5 F L 50 L 14 109/45 100 Intake and Output 11/29/24 11/30/24 11/30/24 22:59 06:59 14:59 Other: Voiding Method Toilet Toilet # Voids 1 2 Results 11/29/24 07:45 11/29/24 08:41 Cardiac Enzymes 11/29/24 11/29/24 Range/Units 10:56 14:35 Troponin I <0.012 <0.012 (0.000-0.034) ng/mL Lipids 11/29/24 Range/Units 08:41 Triglycerides 115.00 (0.00-149.00) mg/dL Cholesterol 126.00 (0.00-200.00) mg/dL HDL Cholesterol 41.90 (40.00-60.00) mg/dL Cholesterol/HDL Ratio 3.01 Ratio Current Medications Generic Name Dose Route Start Last Admin Trade Name Freq PRN Reason Stop Dose Admin Albuterol Sulfate 2.5 mg 11/29/24 12:11 Albuterol Nebulized 2.5 Mg/3 Ml INHALATION RT-Q6H PRN Shortness Of Breath Amlodipine Besylate 5 mg 11/30/24 09:00 11/30/24 10:24 Amlodipine 5 Mg Tab PO 5 mg DAILY [facility]ARTIN Administration Aspirin 325 mg 11/30/24 09:00 11/30/24 10:24 Aspirin 325 Mg Tab PO 325 mg DAILY [facility]ARTIN Administration Atorvastatin Calcium 20 mg 11/29/24 21:00 11/29/24 19:57 Atorvastatin 20 Mg Tab PO 20 mg HS [facility]ARTIN Administration Bupropion HCl 150 mg 11/29/24 21:00 11/30/24 10:24 Bupropion Sr 150 Mg Tablet.Er PO 150 mg BID [facility]ARTIN Administration Dapagliflozin 10 mg 11/30/24 09:00 11/30/24 10:24 Dapagliflozin Propanediol 10 Mg Tablet PO 10 mg DAILY [facility]ARTIN Administration Divalproex Sodium 500 mg 11/29/24 16:00 11/30/24 10:24 Divalproex 500 Mg Tablet.Dr PO 500 mg TID [facility] Administration Famotidine 20 mg 11/29/24 21:00 11/30/24 10:24 Famotidine 20 Mg/2 Ml Vial IV 20 mg Q12HR [facility] Administration Hydroxyzine HCl 25 mg 11/29/24 12:11 Hydroxyzine Hcl 25 Mg Tab PO TID PRN Anxiety Mirtazapine 15 mg 11/29/24 21:00 11/29/24 19:57 Mirtazapine 15 Mg Tab PO 15 mg HS [facility] Administration Nitroglycerin 0.4 mg 11/29/24 09:21 Nitroglycerin Sl Tabs 0.4 Mg Tab SUBLINGUAL Q5M PRN Chest Pain Nitroglycerin 0.5 inch 11/29/24 12:00 11/30/24 05:03 Nitroglycerin Oint 1 Inch/Gm Packet TOPICAL Not Given Q6HR [facility] Oxybutynin Chloride 5 mg 11/30/24 09:00 11/30/24 10:24 Oxybutynin Xl 5 Mg Tab.Er.24 PO 5 mg DAILY [facility] Administration Spironolactone 50 mg 11/29/24 17:30 11/29/24 16:11 Spironolactone 25 Mg Tab PO 50 mg W/SUPPER [facility] Administration Tamsulosin HCl 0.4 mg 11/30/24 09:00 11/30/24 10:24 Tamsulosin 0.4 Mg Cap.Er.24h PO 0.4 mg DAILY [facility] Administration Intake and Output 11/29/24 11/30/24 11/30/24 22:59 06:59 14:59 Other: Voiding Method Toilet Toilet # Voids 1 2 11/29/24 07:45 11/29/24 08:41
--- NOTE | 2024-11-30 16:45 | P.CN ---
Psychiatric Consult - . Consult date: 11/30/24 Consult:: 11/30/24 16:30 IDENTIFYING DATA: This patient is a 74-year-old male REASON FOR REFERRAL: Psychiatry was consulted for bipolar disorder with insomnia and fatigue HISTORY OF PRESENT ILLNESS: The patient presented to the hospital due to chest pain and was seen by cardiology. Planning for stress echo tomorrow. Patient reports long history of mental illness and states that his mood has been low for the past few years. He reports he has not had a manic episode in many years. He denies symptoms consistent with paco recently. He reports having trouble staying asleep with being able to sleep only 2 to 3 hours before waking up at night. He says he has suffered from poor sleep for decades. He denies concerns with appetite. He reports poor concentration and poor energy. During conversation, patient displays low self-esteem. He reports compliance with his psychotropic medications and sees his primary care provider for the prescriptions. Patient denies overt symptoms of anxiety. He denies auditory and visual hallucinations. He denies suicidal ideation homicidal ideation, intent or plan, as asked and assessed. Patient reports not having consumed alcohol in the past 1 month and states that prior to that, he had been drinking only occasionally. However he admits to severe daily use in the past. He also endorses a history of attending AA meetings. He reports recently quitting smoking tobacco (was smoking 1ppd) but states that he has picked it up many times after quitting. He denies other substance use. PAST PSYCHIATRIC HISTORY: He reports having been a patient at [facility] through [facility] in the distant past but states that he has not followed up with them in some time. Patient is on Wellbutrin 150 mg twice a day, Depakote 5 mg 3 times a day, and Remeron 15 mg at bedtime. PAST MEDICAL HISTORY: Past Medical History: COPD, Hyperlipidemia, Hypertension, Prostate Disorder Additional Past Medical History / Comment(s): alcoholic, "leaky gut" History of Any Multi-Drug Resistant Organisms: None Reported Past Surgical History: Orthopedic Surgery Additional Past Surgical History / Comment(s): R femur repair, COLONOSCOPY, LT EYE SX-LOWER LID REATTACHED, Past Anesthesia/Blood Transfusion Reactions: No Reported Reaction Past Psychological History: Bipolar Smoking Status: Former smoker Past Alcohol Use History: Occasional Additional Past Alcohol Use History / Comment(s): QUIT SMOKING 10 DAYS AGO- SMOKED 1 PPD OFF AND SINCE AGE 30. RECOVERING ALCOHOLIC-LAST DRINK ABOUT 30 DAYS AGO Past Drug Use History: None Reported ALLERGIES: as per EMR. CHEMICAL DEPENDENCY HISTORY: as per HPI. FAMILY PSYCHIATRIC/SUBSTANCE USE HISTORY: Brother has schizophrenia SOCIAL HISTORY: Patient states that he lives by himself in senior housing. He reports being able to support himself. Not and no children. He has 8 siblings. 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 MENTAL STATUS EXAM: General Appearance: Patient appears to be stated age is alert, pleasant, and cooperative. Patient appears to have fair hygiene and grooming wearing hospital gown with good eye contact. Behavior: Patient is calmly seated in bed without any agitated behavior. Flirtatious Speech: Patient's speech is fluent and nonpressured. Mood/Affect: Patient reports their mood is "low", affect is smiling, joking, and incongruent Suicidality/Homicidality: Patient denies having any suicidal or homicidal ideation intent or plan. 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 -Would recommend the following medication changes/additions: Change Depakote to 500 mg daily and 1000 mg qHS. Change Wellbutrin to XL 300 mg daily. Continue Remeron 15 mg qHS for sleep, low mood, and appetite. -supervisor hand workers to provide patient with outpatient mental health/psychiatry resources for appropriate follow up upon discharge -Clerk [employer] spoke with patient about substance abuse and the harmful effects on medical and mental health, patient verbally understood and agreed. -supervisor hand workers to provide patient substance use treatment resources including AA/NA meetings in the community. -Communicated plan to patient's nurse -Will continue to follow along peripherally -Please contact with any questions.
--- NOTE | 2024-11-30 19:05 | P.PN ---
Subjective This is a pleasant 74 years old male with past medical history of multiple medical problems including hypertension, COPD, BPH, bipolar disorder, anxiety, hyperlipidemia Presents because of chest dullness rather than chest pain as he states, he has been going on for about months, patient is stating he is not sleeping good for a long time, he wake up in the middle of the night, feeling tired he feels dysfunctional, currently is dialysis 0/10. States his illness comes and goes with no obvious precipitating or relieving factors. Patient states he just had colonoscopy 2 days ago and he has little bit of spasm in his belly which is resolved now He is currently on Depakote for his bipolar. He has history of A-fib but not sure about that. He does not think him takes aspirin at home. He has some itching and scabs in both upper and lower extremity which are sporadic Hemodynamically stable and is afebrile Labs were unremarkable including CBC, BMP, LFT. Troponin x 2 are negative less than 0.012. D-dimer is 0.65 which is within the reference range of its corrected for age as patient is 74 years old Chest x-ray showing no acute cardiopulmonary process EKG showing A-fib at [address] elevation but there is aberrant conduction versus PVCs TSH normal at 1.6. Patient started on aspirin 11/30 Patient looks better than yesterday Also no more dullness Although he developed nonsustained V. tach, golf ball winder recommended to stop drinking alcohol. Cardiology recommends stress test tomorrow and if negative may be considered for discharge Psychiatry input is appreciated, patient medication were adjusted and now he feels better Possible discharge in 24 hours if he continues to improve with negative stress test Review of systems CONSTITUTIONAL: No fever, no malaise, no fatigue. HEENT: No recent visual problems or hearing problems. Denied any sore throat. CARDIOVASCULAR: No orthopnea, PND, no palpitations, no syncope. PULMONARY: No shortness of breath, no cough, no hemoptysis. GASTROINTESTINAL: No diarrhea, no nausea, no vomiting, no abdominal pain. Normoactive bowel sounds. NEUROLOGICAL: No headaches, no weakness, no numbness. Active Medications Generic Name Dose Route Start Last Admin Trade Name Freq PRN Reason Stop Dose Admin Albuterol Sulfate 2.5 mg 11/29/24 12:11 Albuterol Nebulized 2.5 Mg/3 Ml INHALATION RT-Q6H PRN Shortness Of Breath Amlodipine Besylate 5 mg 11/30/24 09:00 11/30/24 10:24 Amlodipine 5 Mg Tab PO 5 mg DAILY MARTIN Administration Aspirin 325 mg 11/30/24 09:00 11/30/24 10:24 Aspirin 325 Mg Tab PO 325 mg DAILY MARTIN Administration Atorvastatin Calcium 20 mg 11/29/24 21:00 11/29/24 19:57 Atorvastatin 20 Mg Tab PO 20 mg HS MARTIN Administration Bupropion HCl 300 mg 12/01/24 09:00 Bupropion Xl 300 Mg Tab.Er.24h PO DAILY MARTIN Dapagliflozin 10 mg 11/30/24 09:00 11/30/24 10:24 Dapagliflozin Propanediol 10 Mg Tablet PO 10 mg DAILY MARTIN Administration Divalproex Sodium 500 mg 12/01/24 09:00 Divalproex 500 Mg Tablet. PO DAILY MRATIN Divalproex Sodium 1,000 mg 11/30/24 21:00 Divalproex 500 Mg Tablet. PO HS MARTIN Famotidine 20 mg 11/29/24 21:00 11/30/24 10:24 Famotidine 20 Mg/2 Ml Vial IV 20 mg Q12HR MARTIN Administration Hydroxyzine HCl 25 mg 11/29/24 12:11 Hydroxyzine Hcl 25 Mg Tab PO TID PRN Anxiety Dobutamine HCl/Dextrose 500 mg 250 mls @ 31.298 mls/hr 12/01/24 07:00 / IV Solution IV 12/01/24 15:00 .Q8H PRN Per Protocol Protocol 10 MCG/KG/MIN Mirtazapine 15 mg 11/29/24 21:00 11/29/24 19:57 Mirtazapine 15 Mg Tab PO 15 mg HS MARTIN Administration Nitroglycerin 0.4 mg 11/29/24 09:21 Nitroglycerin Sl Tabs 0.4 Mg Tab SUBLINGUAL Q5M PRN Chest Pain Nitroglycerin 0.5 inch 11/29/24 12:00 11/30/24 17:26 Nitroglycerin Oint 1 Inch/Gm Packet TOPICAL Not Given Q6HR MARTIN Oxybutynin Chloride 5 mg 11/30/24 09:00 11/30/24 10:24 Oxybutynin Xl 5 Mg Tab.Er.24 PO 5 mg DAILY MARTIN Administration Spironolactone 50 mg 11/29/24 17:30 11/30/24 17:27 Spironolactone 25 Mg Tab PO 50 mg W/SUPPER MARTIN Administration Tamsulosin HCl 0.4 mg 11/30/24 09:00 11/30/24 10:24 Tamsulosin 0.4 Mg Cap.Er.24h PO 0.4 mg DAILY MARTIN Administration Objective - Vital Signs Vital signs: Vital Signs Temp 97.9 F 11/30/24 18:53 Pulse 67 11/30/24 18:53 Resp 16 11/30/24 18:53 BP 109/72 11/30/24 18:53 Pulse Ox 97 11/30/24 18:53 FiO2 Intake & Output 11/30/24 11/30/24 12/01/24 06:59 18:59 06:59 Intake Total 240 Balance 240 Intake: Oral 240 Other: Voiding Method Toilet # Voids 2 3 - Exam GENERAL: The patient is alert and oriented x3, not in any acute distress. Well developed, well nourished. HEENT: Pupils are round and equally reacting to light. EOMI. No scleral icterus. No conjunctival pallor. Normocephalic, atraumatic. No pharyngeal erythema. No thyromegaly. CARDIOVASCULAR: S1 and S2 present. No murmurs, rubs, or gallops. PULMONARY: Chest is clear to auscultation, no wheezing , no crackles. ABDOMEN: Soft, nontender, nondistended, normoactive bowel sounds. No palpable organomegaly. MUSCULOSKELETAL: No joint swelling or deformity. EXTREMITIES: No cyanosis, clubbing, or pedal edema. NEUROLOGICAL: Gross neurological examination did not reveal any focal deficits. SKIN: No rashes. no petechiae. - Labs CBC & Chem 7: 11/29/24 07:45 11/29/24 08:41 Assessment and Plan Assessment: Chest pain, rule out cardiac causes Bipolar with anxiety Insomnia and feeling dysfunctional with some symptoms of tiredness, currently have active symptoms which improved COPD Hyperlipidemia Hypertension Anxiety Benign prostatic hypertrophy Plan: Cardiology consult Continue with aspirin Stress test in the morning Psychiatry my help evaluating the patient. Medication were adjusted and patient already feels better Labs and medication were reviewed.. Continue same treatment. Continue with symptomatic treatment. Resume home medication. Monitor labs and vitals. DVT and GI prophylaxis. Further recommendations as per clinical course of the patient DVT prophylaxis: Subcutaneous heparin GI Prophylaxis: Pepcid Prognosis is guarded
[2024-11-30] MEDS: DIVALPROEX 500 MG TABLET.DR PO SCH (20:52)
[2024-12-01] MEDS ORDERED: DOBUTamine DRIP for NUC MED 500 MG in DEXTROSE/WATER 1 250ML.BAG IV PRN (07:00)
[2024-12-01] MEDS: buPROPion XL 300 MG TAB.ER.24H PO SCH (08:25)
[2024-12-01] MEDS: DIVALPROEX 500 MG TABLET.DR PO SCH (08:26)
--- NOTE | 2024-12-01 09:46 | P.PN ---
Subjective HISTORY OF PRESENT ILLNESS: HPI: Patient is a pleasant 74-year-old male with a past medical history that includes COPD, hyperlipidemia, hypertension, alcohol use, and enlarged prostate who presented to the hospital with complaints of chest discomfort. Patient reports symptom onset was when he woke up yesterday morning. Reports the pain is a dull ache, mild, midsternal. He denies shortness of breath. Initial EKG demonstrated sinus rhythm with PACs. Troponins have been negative x 3. A repeat EKG showed normal sinus rhythm with sinus bradycardia. Patient reports that he feels fine this morning. He is not experiencing any of the same symptoms that he had yesterday. Patient admits to a poor memory. Patient approximates chest discomfort for approximately 30 to 40 minutes. Nursing showed us 1 episode of nonsustained V. tach earlier this morning. 12/01/2024 Patient examined this morning the bedside. Patient denies any chest pain or pressure. Denies any shortness of breath. Vital signs are stable. PHYSICAL EXAM: VITAL SIGNS: Reviewed. GENERAL: Well-developed in no acute distress. NECK: Supple. No JVD or thyromegaly LUNGS: Respirations even and unlabored. Lungs essentially clear to auscultation bilaterally. HEART: Regular rate and rhythm. S1 and S2 heard. EXTREMITIES: Normal range of motion. No clubbing or cyanosis. Peripheral pulses intact. No lower extremity edema ASSESSMENT: Chest pain Hypertension COPD Nonsustained ventricular tachycardia History of alcohol abuse Nicotine dependence PLAN: Decrease aspirin to 81 mg daily Discontinue Nitropaste Patient to undergo stress echocardiogram today If negative, patient may be discharged home from a cardiac standpoint Patient to follow-up postdischarge with Dr. Mccabe Nurse practitioner note has been reviewed by physician. Signing provider agrees with the documented findings, assessment, and plan of care documented by [employer] as a scribe. Objective - Vital Signs Vital signs: Vital Signs Temp 98.2 F 12/01/24 07:00 Pulse 64 12/01/24 07:00 Resp 16 12/01/24 07:00 BP 112/69 12/01/24 07:00 Pulse Ox 98 12/01/24 07:00 FiO2 Intake & Output 11/30/24 12/01/24 12/01/24 18:59 06:59 18:59 Intake Total 240 Balance 240 Intake: Oral 240 Other: # Voids 3 1 - Labs CBC & Chem 7: 11/29/24 07:45 11/29/24 08:41
--- NOTE | 2024-12-01 11:02 | CA ---
Stress Echo Report Ezra Barrera Age: 74 Gender: M : 1950 Exam Date: 12/01/2024 09:35 Exam Location: [facility] Ht (in): 76 Wt (lb): 230 Ordering Physician: Silvino Hanna NPC Referring Physician: SILVINO HANNA,, Admitting Interviewer: ABRAHAM, Technologist Procedure CPT: Indication: Chest Pain ICD-9 Codes: Rhythm: Patient History: TOB, CP, HTN. Cardiac Medications: SEE CHART,,,,, Medications in past 24 hours: Contrast: Stress Results Protocol: Avel Total dose(mL): Exercise Duration (min:sec): Max ST Depression (mm): Angina Score: Donato Score: METS: 6.4 Resting HR: 103 Resting BP: 140 / 85 Peak HR: 138 Peak BP: 137 / 86 Max Predicted HR: 146 95 % Max Predicted HR Target HR: 124 Double Product: [id number] Stress Summary: BP Response: Reason for Termination: MAX EXERTION/TARGET HR Cardiac Symptoms: NO SYMPTOMS ECG Analysis Resting ECG: Normal sinus rhythm normal axis normal intervals Stress ECG: Patient exercised on Avel protocol for 4 minutes and 50 seconds achieving 85% of predicted maximal heart rate at peak exercise there were frequent PVCs including couplets and half millimeter upsloping ST segment depression Arrhythmia: Frequent ventricular ectopy Echo Analysis Resting Echo: Baseline echocardiogram shows normal left ventricular size systolic function with hypokinesis involving basal and mid inferior wall suggestive of prior myocardial infarction Peak Echo Analysis: Post exercise anterior wall septum and the lateral wall show normal hyperdynamic response inferior wall remains unchanged MEASUREMENTS (Male/Female) Normal Values CONCLUSIONS Limited exercise tolerance Abnormal stress test with frequent and complex ventricular ectopy Abnormal stress echo showing evidence of prior inferior wall myocardial infarction without any evidence of exercise-induced wall motion abnormalities Dr. Pola Hennessy MD (Electronically Signed) Final Date: 01 December 2024 11:01
[2024-12-01] MEDS ORDERED: ALPRAZolam 0.25 MG TAB PO PRN (11:03)
[2024-12-01] MEDS ORDERED: ALPRAZolam 0.5 MG TAB PO PRN (11:03)
[2024-12-01] MEDS ORDERED: NITROGLYCERIN SL TABS 0.4 MG TAB SUBLINGUAL PRN (11:03)
[2024-12-01 13:00] LABS: Glucose,Whole Blood 82 mg/dL (70-110)
[2024-12-01 17:38] LABS: Glucose,Whole Blood 102 mg/dL (70-110)
--- NOTE | 2024-12-01 20:26 | P.PN ---
Subjective This is a pleasant 74 years old male with past medical history of multiple medical problems including hypertension, COPD, BPH, bipolar disorder, anxiety, hyperlipidemia Presents because of chest dullness rather than chest pain as he states, he has been going on for about months, patient is stating he is not sleeping good for a long time, he wake up in the middle of the night, feeling tired he feels dysfunctional, currently is dialysis 0/10. States his illness comes and goes with no obvious precipitating or relieving factors. Patient states he just had colonoscopy 2 days ago and he has little bit of spasm in his belly which is resolved now He is currently on Depakote for his bipolar. He has history of A-fib but not sure about that. He does not think him takes aspirin at home. He has some itching and scabs in both upper and lower extremity which are sporadic Hemodynamically stable and is afebrile Labs were unremarkable including CBC, BMP, LFT. Troponin x 2 are negative less than 0.012. D-dimer is 0.65 which is within the reference range of its corrected for age as patient is 74 years old Chest x-ray showing no acute cardiopulmonary process EKG showing A-fib at [address] elevation but there is aberrant conduction versus PVCs TSH normal at 1.6. Patient started on aspirin 11/30 Patient looks better than yesterday Also no more dullness Although he developed nonsustained V. tach, ux developer recommended to stop drinking alcohol. Cardiology recommends stress test tomorrow and if negative may be considered for discharge Psychiatry input is appreciated, patient medication were adjusted and now he feels better Possible discharge in 24 hours if he continues to improve with negative stress test 12/01 Patient with no chest pain or dyspnea looks comfortable Patient had abnormal stress test today I reviewed the chest test by myself and agree with the finding showing abnormal frequent ventricular ectopy and evidence of prior inferior wall myocardial infarction without any evidence of exercise- induced wall motion abnormality. Patient continued on aspirin at her dose 325 mg, Lipitor 80 mg Planned to undergo cardiac cath in the morning Review of systems CONSTITUTIONAL: No fever, no malaise, no fatigue. HEENT: No recent visual problems or hearing problems. Denied any sore throat. CARDIOVASCULAR: No orthopnea, PND, no palpitations, no syncope. PULMONARY: No shortness of breath, no cough, no hemoptysis. GASTROINTESTINAL: No diarrhea, no nausea, no vomiting, no abdominal pain. Normoactive bowel sounds. NEUROLOGICAL: No headaches, no weakness, no numbness. Active Medications Generic Name Dose Route Start Last Admin Trade Name Freq PRN Reason Stop Dose Admin Albuterol Sulfate 2.5 mg 11/29/24 12:11 Albuterol Nebulized 2.5 Mg/3 Ml INHALATION RT-Q6H PRN Shortness Of Breath Alprazolam 0.25 mg 12/01/24 11:03 Alprazolam 0.25 Mg Tab PO Q6HR PRN Mild Anxiety Alprazolam 0.5 mg 12/01/24 11:03 Alprazolam 0.5 Mg Tab PO Q6HR PRN Moderate Anxiety Amlodipine Besylate 5 mg 11/30/24 09:00 12/01/24 08:25 Amlodipine 5 Mg Tab PO 5 mg DAILY MARTIN Administration Aspirin 81 mg 12/02/24 09:00 Aspirin 81 Mg PO DAILY MARTIN Aspirin 325 mg 12/02/24 05:00 Aspirin 325 Mg Tab PO 12/02/24 05:01 ONCE ONE Atorvastatin Calcium 20 mg 11/29/24 21:00 11/30/24 20:52 Atorvastatin 20 Mg Tab PO 20 mg HS MARTIN Administration Atorvastatin Calcium 80 mg 12/02/24 05:00 Atorvastatin 80 Mg Tab PO 12/02/24 05:01 ONCE ONE Bupropion HCl 300 mg 12/01/24 09:00 12/01/24 08:25 Bupropion Xl 300 Mg Tab.Er.24h PO 300 mg DAILY MARTIN Administration Dapagliflozin 10 mg 11/30/24 09:00 12/01/24 08:25 Dapagliflozin Propanediol 10 Mg Tablet PO 10 mg DAILY MARTIN Administration Divalproex Sodium 500 mg 12/01/24 09:00 12/01/24 08:26 Divalproex 500 Mg Tablet.Dr PO 500 mg DAILY MARTIN Administration Divalproex Sodium 1,000 mg 11/30/24 21:00 11/30/24 20:52 Divalproex 500 Mg Tablet.Dr PO 1,000 mg HS MARTIN Administration Famotidine 20 mg 11/29/24 21:00 12/01/24 08:26 Famotidine 20 Mg/2 Ml Vial IV 20 mg Q12HR MARTIN Administration Hydroxyzine HCl 25 mg 11/29/24 12:11 Hydroxyzine Hcl 25 Mg Tab PO TID PRN Anxiety Heparin Sodium (Porcine) 10, 1,001 mls @ 999 mls/hr 12/02/24 07:00 000 unit/ Sodium Chloride IRRIGATION 12/02/24 23:00 ONCE PRN INTRA-OP Heparin Sodium (Porcine) 2,500 250.5 mls @ 250 mls/hr 12/02/24 07:00 unit/ Sodium Chloride IRRIGATION 12/02/24 23:00 ONCE PRN INTRA-OP Sodium Chloride 1,000 ml/ IV 1,000 mls @ 104.326 mls/hr 12/02/24 01:00 Solution IV .Q9H36M MARTIN 1 ML/KG/HR Mirtazapine 15 mg 11/29/24 21:00 11/30/24 20:52 Mirtazapine 15 Mg Tab PO 15 mg HS MARTIN Administration Nitroglycerin 0.4 mg 11/29/24 09:21 Nitroglycerin Sl Tabs 0.4 Mg Tab SUBLINGUAL Q5M PRN Chest Pain Nitroglycerin 0.4 mg 12/01/24 11:03 Nitroglycerin Sl Tabs 0.4 Mg Tab SUBLINGUAL Q5M PRN Chest Pain Oxybutynin Chloride 5 mg 11/30/24 09:00 12/01/24 08:25 Oxybutynin Xl 5 Mg Tab.Er.24 PO 5 mg DAILY MARTIN Administration Spironolactone 50 mg 11/29/24 17:30 12/01/24 18:18 Spironolactone 25 Mg Tab PO 50 mg W/SUPPER MARTIN Administration Tamsulosin HCl 0.4 mg 11/30/24 09:00 12/01/24 08:25 Tamsulosin 0.4 Mg Cap.Er.24h PO 0.4 mg DAILY MARTIN Administration Objective - Vital Signs Vital signs: Vital Signs Temp 97.5 F L 12/01/24 19:03 Pulse 76 12/01/24 19:03 Resp 16 12/01/24 19:03 BP 110/75 12/01/24 19:03 Pulse Ox 98 12/01/24 19:03 FiO2 Intake & Output 12/01/24 12/01/24 12/02/24 06:59 18:59 06:59 Other: # Voids 1 2 # Bowel Movements 1 - Exam GENERAL: The patient is alert and oriented x3, not in any acute distress. Well developed, well nourished. HEENT: Pupils are round and equally reacting to light. EOMI. No scleral icterus. No conjunctival pallor. Normocephalic, atraumatic. No pharyngeal erythema. No thyromegaly. CARDIOVASCULAR: S1 and S2 present. No murmurs, rubs, or gallops. PULMONARY: Chest is clear to auscultation, no wheezing , no crackles. ABDOMEN: Soft, nontender, nondistended, normoactive bowel sounds. No palpable organomegaly. MUSCULOSKELETAL: No joint swelling or deformity. EXTREMITIES: No cyanosis, clubbing, or pedal edema. NEUROLOGICAL: Gross neurological examination did not reveal any focal deficits. SKIN: No rashes. no petechiae. - Labs CBC & Chem 7: 11/29/24 07:45 11/29/24 08:41 Assessment and Plan Assessment: Chest pain, rule out cardiac causes, abnormal stress echo on 12/01 Bipolar with anxiety Insomnia and feeling dysfunctional with some symptoms of tiredness, currently have active symptoms which improved COPD Hyperlipidemia Hypertension Anxiety Benign prostatic hypertrophy Plan: Continue with aspirin and Lipitor Cardiology team on the case cardiac cath in the morning Psychiatry my help evaluating the patient. Medication were adjusted and patient already feels better Labs and medication were reviewed.. Continue same treatment. Continue with symptomatic treatment. Resume home medication. Monitor labs and vitals. DVT and GI prophylaxis. Further recommendations as per clinical course of the katalina ent DVT prophylaxis: Subcutaneous heparin GI Prophylaxis: Pepcid Prognosis is guarded
[2024-12-01 21:15] LABS: Glucose,Whole Blood 85 mg/dL (70-110)
[2024-12-02 00:36] VITALS: TEMP 97.7
[2024-12-02] MEDS: SODIUM CHLORIDE 0.9% 1,000 ML in EMPTY BAG 1 BAG IV SCH (01:00)
[2024-12-02] MEDS: ATORVASTATIN 80 MG TAB PO ONE (05:25)
[2024-12-02] MEDS: ASPIRIN 325 MG TAB PO ONE (05:26)
[2024-12-02 06:01] LABS: Glucose,Whole Blood 94 mg/dL (70-110)
--- NOTE | 2024-12-02 09:28 | P.PN ---
Subjective HISTORY OF PRESENT ILLNESS: HPI: Patient is a pleasant 74-year-old male with a past medical history that includes COPD, hyperlipidemia, hypertension, alcohol use, and enlarged prostate who presented to the hospital with complaints of chest discomfort. Patient reports symptom onset was when he woke up yesterday morning. Reports the pain is a dull ache, mild, midsternal. He denies shortness of breath. Initial EKG demonstrated sinus rhythm with PACs. Troponins have been negative x 3. A repeat EKG showed normal sinus rhythm with sinus bradycardia. Patient reports that he feels fine this morning. He is not experiencing any of the same symptoms that he had yesterday. Patient admits to a poor memory. Patient approximates chest discomfort for approximately 30 to 40 minutes. Nursing showed us 1 episode of nonsustained V. tach earlier this morning. 12/01/2024 Patient examined this morning the bedside. Patient denies any chest pain or pressure. Denies any shortness of breath. Vital signs are stable. 12/02/2024 Patient underwent stress echocardiogram yesterday revealing frequent and complex ventricular ectopy. Abnormal stress echo revealing evidence of prior inferior wall NV without any evidence of exercise-induced wall motion abnormalities. Patient is scheduled to undergo cardiac catheterization today with Dr. Hennessy. Patient without complaints of chest pain or shortness of breath this morning. Vital signs are stable. PHYSICAL EXAM: VITAL SIGNS: Reviewed. GENERAL: Well-developed in no acute distress. NECK: Supple. No JVD or thyromegaly LUNGS: Respirations even and unlabored. Lungs essentially clear to auscultation bilaterally. HEART: Regular rate and rhythm. S1 and S2 heard. EXTREMITIES: Normal range of motion. No clubbing or cyanosis. Peripheral pulses intact. No lower extremity edema ASSESSMENT: Chest pain, status post abnormal stress echo Hypertension COPD Nonsustained ventricular tachycardia History of alcohol abuse Nicotine dependence PLAN: Continue current cardiac medications including aspirin, Lipitor, Farxiga, and Aldactone Add metoprolol tartrate 12.5 mg twice a day Patient to undergo cardiac catheterization today with Dr. Hennessy Patient to follow-up postdischarge with Dr. Mccabe Nurse practitioner note has been reviewed by physician. Signing provider agrees with the documented findings, assessment, and plan of care documented by ME[employer] as a scribe. Objective - Vital Signs Vital signs: Vital Signs Temp 97.7 F 12/02/24 00:35 Pulse 61 12/02/24 00:35 Resp 17 12/02/24 00:35 BP 123/75 12/02/24 00:35 Pulse Ox 99 12/02/24 00:35 FiO2 Intake & Output 12/01/24 12/02/24 12/02/24 18:59 06:59 18:59 Other: # Voids 2 2 # Bowel Movements 1 - Labs CBC & Chem 7: 11/29/24 07:45 11/29/24 08:41
[2024-12-02] MEDS: ASPIRIN 81 MG PO SCH (09:41)
[2024-12-02 09:58] VITALS: RESP 16
[2024-12-02] MEDS: MIDAZOLAM 2 MG/2 ML VIAL IVP ONE (11:21)
[2024-12-02] MEDS: fentaNYL (PF) 50 MCG/1 ML VIAL IVP ONE (11:21)
[2024-12-02] MEDS: LIDOCAINE 1% INJ 10MG/ML (20 ML MDV) SQ ONE (11:21)
[2024-12-02] MEDS: VERAPAMIL SYRINGE (5 MG/10 ML) INTRAARTER ONE (11:24)
[2024-12-02] MEDS: HEPARIN SODIUM 1,000 UN/ML (10ML VL) IVP ONE (11:25)
[2024-12-02] MEDS: HEPARIN SODIUM,PORCINE 10,000 UNIT in SODIUM CHLORIDE 0.9% 1,000 ML IRRIGATION PRN (11:26)
[2024-12-02] MEDS: HEPARIN SODIUM,PORCINE (1 ML) 2,500 UNIT in SODIUM CHLORIDE 0.9% 250 ML IRRIGATION PRN (11:26)
[2024-12-02] MEDS: SODIUM CHLORIDE 0.9% 1,000 ML IV ONE (11:26)
[2024-12-02] MEDS: IOPAMIDOL-370 100ML BTL INJ ONE (11:29)
--- NOTE | 2024-12-02 12:09 | CC ---
CARDIAC CATHETERIZATION REPORT INDICATION: Chest pain with abnormal stress test. PROCEDURE NOTE: After obtaining informed consent, left heart catheterization and coronary angiogram were performed via the right radial artery using standard Ryan catheters. The patient tolerated the procedure well without any obvious immediate complications. He received moderate conscious sedation. Total sedation time was 11 minutes. Right radial artery access was obtained using Seldinger technique, 6-Icelandic sheath was placed. Catheters and wires were floated into the ascending aorta under fluoroscopic guidance. The patient received verapamil and heparin per protocol and a TR band will be used for hemostasis. FINDINGS: 1. HEMODYNAMICS: Left ventricular end-diastolic pressure is 10 to 12 mm. There is no significant gradient across the aortic valve. 2. LEFT VENTRICULOGRAM: Left ventriculogram is not performed. 3. ANGIOGRAPHIC DATA: a.Right coronary artery: Right coronary artery is a large dominant vessel and is free of significant stenosis. b.Left main coronary artery is a normal-sized vessel and is free of disease, divides into left anterior descending coronary artery and circumflex coronary artery. 4. LAD and its branches, circumflex coronary artery and its branches are free of significant stenosis. CONCLUSIONS: 1. Normal left ventricular end-diastolic pressure. 2. Normal coronary arteries. 3. Falsely positive stress test. MMODL / IJN: [id number] /
[2024-12-02] MEDS ORDERED: RX INFO: IV CONTRAST WAS GIVEN 1 EACH MISC MISCELLANE PRN (12:22)
[2024-12-02 12:41] LABS: Glucose,Whole Blood 72 mg/dL (70-110)
[2024-12-02] MEDS: SODIUM CHLORIDE 0.9% 1,000 ML IV SCH (13:43)
[2024-12-02 16:45] VITALS: BP 108/70; PULSE 68
[2024-12-02] MEDS ORDERED: METOPROLOL TARTRATE 12.5 MG TAB PO SCH (21:00)
--- NOTE | 2024-12-03 01:07 | P.DS ---
Providers Date of admission: 11/29/24 09:24 Attending physician: Esau Gresham MD Consults: 11/29/24 09:22 Consult Physician Urgent Consulting Provider: Bernard Mccabe Consult Reason/Comments: cp Do you want consulting provider notified?: Yes 11/29/24 22:04 Consult Physician Routine Consulting Provider: Lazaro Henriquez Consult Reason/Comments: bipolar with insomnina and fatgue Do you want consulting provider notified?: Yes, Notify in am Primary care physician: Russell Brock [facility] Hospital Course: Diagnoses: Chest pain, ruled out cardiac causes, abnormal stress echo on 12/01, this is followed by cardiac cath on 12/03 which was negative for coronary artery disease. Chest pain resolved upon discharge Bipolar with anxiety Insomnia and feeling dysfunctional with some symptoms of tiredness, currently have active symptoms which improved COPD Hyperlipidemia Hypertension Anxiety Benign prostatic hypertrophy Hospital course: This is a pleasant 74 years old male with past medical history of multiple medical problems including hypertension, COPD, BPH, bipolar disorder, anxiety, hyperlipidemia Patient presents because of dullness in his chest on and off for the last few months. He was evaluated by telephone exchange operator had abnormal stress test he had cardiac cath today showing normal coronary arteries, after that he was cleared for discharge by telephone exchange operator Urinary on admission he was having worsening symptoms related to his bipolar disorder, he was evaluated by psychiatry and switch his Depakote from 500 mg 3 times daily into 500 mg in the morning and 1000 mg in the evening. And switch her to Wellbutrin from 150 mg twice daily and to 300 mg daily XL. After this changes patient symptoms improved and he became more calm and more stable even his chest pain dullness were improved. Today patient was relaxed pleasant denied any other new symptoms and agreeable to go home. Patient was cleared for discharge by cardiology as above Problems and management plan were discussed with the patient and he verbalized understanding and acceptance Patient was found stable and can be discharged home in guarded prognosis however he needs follow-up as an outpatient. Patient was instructed to follow up with PCP Dr. Brock within one week and patient agrees Patient was instructed to follow-up with his telephone exchange operator Dr. Chen in 2 weeks Physical exam Gen: patient is a AAOx3, no distress CVS: S1-S2, RRR, no murmur Lungs: B/L CTA, no wheezing Abdomen: soft, no distention, no tenderness, positive bowel sounds Extremity: no leg edema or induration Time spent more than 35 minutes Plan - Discharge Summary Discharge Rx Participant: No New Discharge Prescriptions: New Divalproex [Depakote] 500 mg PO DAILY tab buPROPion XL [Wellbutrin XL] 300 mg PO DAILY #30 tab Divalproex [Depakote] 1,000 mg PO HS #0 tab Continue buPROPion HCL [Wellbutrin SR] 150 mg PO BID Spironolactone 50 mg PO W/SUPPER Mirtazapine 15 mg PO HS Atorvastatin [Lipitor] 20 mg PO HS amLODIPine [Norvasc] 5 mg PO DAILY oxyBUTYnin chloride [oxyBUTYnin chloride ER] 5 mg PO DAILY hydrOXYzine HCL [Atarax] 25 mg PO TID Tamsulosin [Flomax] 0.4 mg PO DAILY Dapagliflozin Propanediol [Farxiga] 10 mg PO DAILY Albuterol Sulfate [Albuterol Sulfate Hfa] 1 - 2 puff PO RT-Q6H PRN PRN Reason: Shortness Of Breath Discontinued Divalproex Sodium [Depakote] 500 mg PO TID Discharge Medication List buPROPion HCL [Wellbutrin SR] 150 mg PO BID 12/16/18 [History] Spironolactone 50 mg PO W/SUPPER 03/18/19 [History] Atorvastatin [Lipitor] 20 mg PO HS 01/18/20 [History] Mirtazapine 15 mg PO HS 01/18/20 [History] Dapagliflozin Propanediol [Farxiga] 10 mg PO DAILY 10/29/24 [History] Tamsulosin [Flomax] 0.4 mg PO DAILY 10/29/24 [History] amLODIPine [Norvasc] 5 mg PO DAILY 10/29/24 [History] hydrOXYzine HCL [Atarax] 25 mg PO TID 10/29/24 [History] oxyBUTYnin chloride [oxyBUTYnin chloride ER] 5 mg PO DAILY 10/29/24 [History] Albuterol Sulfate [Albuterol Sulfate Hfa] 1 - 2 puff PO RT-Q6H PRN 11/29/24 [History] Divalproex [Depakote] 1,000 mg PO HS #0 tab 12/02/24 [Rx] Divalproex [Depakote] 500 mg PO DAILY tab 12/02/24 [Rx] buPROPion XL [Wellbutrin XL] 300 mg PO DAILY #30 tab 12/02/24 [Rx] Follow up Appointment(s)/Referral(s): Bernard Mccabe MD [STAFF PHYSICIAN] - 2 Weeks Russell Brock DO [Primary Care Provider] - 1-2 days Patient Instructions/Handouts: Chest Pain (DC) Activity/Diet/Wound Care/Special Instructions: heart healthy diet activity is restricted till you see your doctor Discharge Disposition: HOME SELF-CARE
== END 2024-12-02 18:20 | disposition home or self-care (01) | DRG 287 ==
LOC: EC 07:24 → 6NMEDSUR 09:23 → OBSVTOIN 09:24 → 6NMEDSUR 10:09
PROVIDERS: ADMIT Internal Medicine; ATTEND Internal Medicine
PROC: B2111ZZ Fluoroscopy of Multiple Coronary Arteries using Low Osmolar Contrast (ICD-10-PCS; 2024-12-02)
PROC: 4A023N7 Measurement of Cardiac Sampling and Pressure, Left Heart, Percutaneous Approach (ICD-10-PCS; principal; 2024-12-02 10:30)
DX: I47.20 Ventricular tachycardia, unspecified (principal); E78.5 Hyperlipidemia, unspecified; F31.30 Bipolar disorder, current episode depressed, mild or moderate severity, unspecified; F10.282 Alcohol dependence with alcohol-induced sleep disorder; J44.9 Chronic obstructive pulmonary disease, unspecified; I10 Essential (primary) hypertension; I48.91 Unspecified atrial fibrillation; F41.9 Anxiety disorder, unspecified; I25.2 Old myocardial infarction; F51.05 Insomnia due to other mental disorder; I49.3 Ventricular premature depolarization; N40.0 Benign prostatic hyperplasia without lower urinary tract symptoms; Z79.899 Other long term (current) drug therapy; Z79.84 Long term (current) use of oral hypoglycemic drugs; Z87.891 Personal history of nicotine dependence; Z71.41 Alcohol abuse counseling and surveillance of alcoholic
CPT/HCPCS: 36415; 71046; 80053; 80061; 83690; 83735; 84443; 84484; 85025; 85379; 85610; 85730; 93005; 93351; 93452; 99285

== ENCOUNTER 2025-04-02 23:06 | Emergency (ER) | payer MEDICARE, OTHER ==
[2025-04-02 23:16] VITALS: RESP 18
--- NOTE | 2025-04-02 23:30 | ED ---
General Adult HPI - General Chief complaint: Altered Mental Status Stated complaint: Mental issues Time Seen by Provider: 04/02/25 23:08 Source: patient, EMS Mode of arrival: EMS - History of Present Illness Initial comments: Dictation was produced using [employer] dictation software. please excuse any grammatical, word or spelling errors. Chief Complaint: 74-year-old male presents with request for mental health eval History of Present Illness: Patient 74-year-old male he has history of psychiatric issues. States that he is here to the emergency department today for psychiatric evaluation. He was at a Narcotics Anonymous meeting when he felt paranoid. Patient feels paranoid because he stopped taking his medications. He states that a hotel service manager threw his pills away. He states his pills included psychiatric medications along with his diabetes and dyslipidemia meds. Denies any suicidal homicidal ideation. The ROS documented in this emergency department record has been reviewed and confirmed by me. Those systems with pertinent positive or negative responses have been documented in the HPI. All other systems are other negative and/or noncontributory. - Related Data Home Medications Medication Instructions Recorded Confirmed buPROPion HCL [Wellbutrin SR] 150 mg PO BID 12/16/18 11/29/24 Spironolactone 50 mg PO W/SUPPER 03/18/19 11/29/24 Atorvastatin [Lipitor] 20 mg PO HS 01/18/20 11/29/24 Mirtazapine 15 mg PO HS 01/18/20 11/29/24 Dapagliflozin Propanediol [Farxiga] 10 mg PO DAILY 10/29/24 11/29/24 Tamsulosin [Flomax] 0.4 mg PO DAILY 10/29/24 11/29/24 amLODIPine [Norvasc] 5 mg PO DAILY 10/29/24 11/29/24 hydrOXYzine HCL [Atarax] 25 mg PO TID 10/29/24 11/29/24 oxyBUTYnin chloride [oxyBUTYnin 5 mg PO DAILY 10/29/24 11/29/24 chloride ER] Albuterol Sulfate [Albuterol 1 - 2 puff PO RT-Q6H PRN 11/29/24 11/29/24 Sulfate Hfa] Previous Rx's Medication Instructions Recorded Divalproex [Depakote] 1,000 mg PO HS #0 tab 12/02/24 Divalproex [Depakote] 500 mg PO DAILY tab 12/02/24 buPROPion XL [Wellbutrin XL] 300 mg PO DAILY #30 tab 12/02/24 Allergies Allergy/AdvReac Type Severity Reaction Status Date / Time Penicillins Allergy Itching/Narciso Verified 04/02/25 23:16 h/Hives Review of Systems ROS Statement: Those systems with pertinent positive or pertinent negative responses have been documented in the HPI. ROS Other: All systems not noted in ROS Statement are negative. Past Medical History Past Medical History: COPD, Hyperlipidemia, Hypertension, Prostate Disorder Additional Past Medical History / Comment(s): alcoholic, "leaky gut" History of Any Multi-Drug Resistant Organisms: None Reported Past Surgical History: Orthopedic Surgery Additional Past Surgical History / Comment(s): R femur repair, COLONOSCOPY, LT EYE SX-LOWER LID REATTACHED, Past Anesthesia/Blood Transfusion Reactions: No Reported Reaction Past Psychological History: Bipolar Smoking Status: Former smoker Past Alcohol Use History: Occasional Past Drug Use History: None Reported - Past Family History Mother Family Medical History: No Reported History General Exam - General Exam Comments Initial Comments: General: Well-appearing, nontoxic, no acute distress. Head: Normocephalic, atraumatic Eyes: PERRLA, EOMI ENT: Airway patent Chest: Nonlabored breathing Skin: No visual rash, normal skin tone Neuro: Alert and oriented 3 Musculoskeletal: No gross abnormalities Course Vital Signs 04/02/25 23:08 Pulse Rate 55 L Respiratory 18 Rate Blood Pressure 137/93 O2 Sat by Pulse 97 Oximetry Medical Decision Making - Medical Decision Making Was pt. sent in by a medical professional or institution (Dr. PA, REGISTERED MASSAGE THERAPIST, urgent care, hospital, or skilled nursing...) When possible be specific @ -No Did you speak to anyone other than the patient for history (EMS, parent, family, police, friend...)? What history was obtained from this source @ -No Did you review nursing and triage notes (agree or disagree)? Why? @ -I reviewed and agree with nursing and triage notes Were old charts reviewed (outside hosp., previous admission, EMS record, old EKG, old radiological studies, urgent care reports/EKG's, skilled nursing records)? Report findings @ -No old charts were reviewed Differential Diagnosis (chest pain, altered mental status, abdominal pain women, abdominal pain men, vaginal bleeding, musculoskeletal, weakness, fever, dyspnea, syncope, headache, dizziness, GI bleed, back pain, seizure, CVA, palpatations, mental health)? @ -Differential Mental Health: Depression, anxiety, bipolar, psychosis, schizophrenia, borderline personality, situational depression, adjustment disorder, behavioral disorder, brain tumor, malingering, substance abuse, encephalopathy, medication reaction, dementia, hypothyroidism, degenerative neurologic disorder, lupus.... This is not meant to be all-inclusive list EKG interpreted by me (3pts min.). @ -None done X-rays interpreted by me (1pt min.). @ -None done CT interpreted by me (1pt min.). @ -None done U/S interpreted by me (1pt. min.). @ -None done What testing was considered but not performed or refused? (CT, X-rays, U/S, labs)? Why? @ -None What meds were considered but not given or refused? Why? @ -None Was smoking cessation discussed for >3mins.? @ -No Were there social determinants of health that impacted care today? How? (Homelessness, low income, unemployed, alcoholism, drug addiction, transportation, low edu. Level, literacy, decrease access to med. care, retirement, rehab)? @ -No Was there de-escalation of care discussed even if they declined (Discuss DNR or withdrawal of care, Hospice)? DNR status @ -No What co-morbidities impacted this encounter? (DM, HTN, Smoking, COPD, CAD, Canc er, CVA, ARF, Chemo, Hep., AIDS, mental health diagnosis, sleep apnea, morbid obesity)? @ -None Was patient admitted / discharged? Hospital course, mention meds given and route, prescriptions, significant lab abnormalities, going to OR and other pertinent info. @ -74-year-old male presents with request for mental health evaluation. He has no physical complaints. Vital signs stable. Physical examination is benign. Patient medically cleared for EPS evaluation. Patient evaluated by EPS recommended discharge. States that he will follow-up with his primary care doctor for his medication issues. Did you discuss the management of the patient with other professionals (professionals i.e. , PA, REGISTERED MASSAGE THERAPIST, lab, RT, psych nurse, social media manager, online marketing manager, teacher, wildlife conservation officer, community case manager)? Give summary @ -No Was critical care preformed (if so, how long)? @ -No Undiagnosed new problem with uncertain prognosis? @ -No Drug Therapy requiring intensive monitoring for toxicity (Heparin, Nitro, I nsulin, Cardizem)? @ -No Were any procedures done? @ -No Diagnosis/symptom? Acute, or Chronic, or Acute on Chronic? Uncomplicated (without systemic symptoms) or Complicated (systemic symptoms)? @ -Psychiatric evaluation Side effects of treatment? @ -No Exacerbation, Progression, or Severe Exacerbation? @ -No Poses a threat to life or bodily function? How? (Chest pain, [place], [place], pneumonia, PE, COPD, DKA, ARF, appy, cholecystitis, CVA, Diverticulitis, Homicidal, Suicidal, threat to staff... and all critical care pts) @ -No Disposition Clinical Impression: Psychiatric complaint Disposition: HOME SELF-CARE Condition: Good Instructions (If sedation given, give patient instructions): Medical Clearance for Psychiatric Care (ED) Is patient prescribed a controlled substance at d/c from ED?: No Referrals: Russell Brock DO [Primary Care Provider] - 1-2 days Time of Disposition: 01:09
[2025-04-03 01:32] VITALS: BP 127/79; PULSE 52; TEMP 97.8
== END 2025-04-03 01:30 | disposition home or self-care (01) ==
LOC: EC 23:06
DX: Z00.8 Encounter for other general examination (principal); E11.9 Type 2 diabetes mellitus without complications; Z87.891 Personal history of nicotine dependence; Z88.0 Allergy status to penicillin
CPT/HCPCS: 99284